=== PATIENT | female | born 1970 | race Caucasian/White ===

== ENCOUNTER 2017-08-25 14:35 | Emergency (ER) | payer OTHER, SELFPAY | END 2017-08-25 16:03 | disposition home or self-care (01) | PROVIDERS: Emergency Provider Nurse Practitioner Family; Visit Provider Nurse Practitioner Family | DX: J10.1 Influenza due to other identified influenza virus with other respiratory manifestations (principal); F17.210 Nicotine dependence, cigarettes, uncomplicated | CPT/HCPCS: 87804; 99201 ==

== ENCOUNTER 2017-10-26 21:09 | Emergency (ER) | payer OTHER, SELFPAY ==
[2017-10-26 21:09] VITALS: BP 156/117; PULSE 105; RESP 18; TEMP 37; O2SAT 97; BMI 33.9
--- NOTE | 2017-10-26 21:23 | XR_ITS ---
XR chest 2V INDICATION: Chest pain PA and lateral chest 12/14/2012 COMPARISON: FINDINGS: The lung ceballos are well expanded and appear clear of infiltrate. The cardiomediastinal silhouette and vascularity are normal. The costophrenic angles are clear. The bony thorax is normal. IMPRESSION: Normal chest.
[2017-10-26 21:40] LABS: Basophils % 0.4 % (0.1-2.0); Eosinophils # 0.4 K/mm3 (0.0-0.4); Eosinophils % 3.8 % (0.1-12.0); Hemoglobin 11.2 g/dL (12.2-16.2); Lymphocytes # 2.7 K/mm3 (0.7-4.5); Lymphocytes % 25.2 K/mm3 (10-50); Mean Corpuscular HGB Conc 31.9 g/dL (31.8-35.4); Mean Corpuscular Hemoglobin 30.7 pg (27.0-31.2); Mean Platelet Volume 7.9 fl (7.4-10.4); Monocytes # 0.4 K/mm3 (0.1-1.0); Monocytes % 3.9 % (1.7-9.3); Neutrophils # 7.1 K/mm3 (1.8-7.8); Neutrophils % 66.8 % (37.0-80.0); Platelet Count 315 K/mm3 (142-424); Red Blood Count 3.65 M/mm3 (4.20-5.40); Red Cell Distribution Width 15.4 % (11.5-17.5); White Blood Count 10.6 K/mm3 (4.8-10.8)
[2017-10-26 22:07] LABS: Alanine Aminotransferase 26 U/L (12-78); Albumin Level 3.2 gm/dL (3.4-5.0); Albumin/Globulin Ratio 0.8 (1.1-1.8); Alkaline Phosphatase 120 U/L (46-116); Anion Gap 9.3 mEq/L (5-15); Aspartate Amino Transferase 16 U/L (15-37); Bilirubin,Total 0.2 mg/dL (0.2-1.0); Blood Urea Nitrogen 18 mg/dL (7-18); Calcium 8.6 mg/dL (8.5-10.1); Carbon Dioxide 28 mmol/L (21.0-32.0); Chloride 107 mmol/L (98-107); Creatine Kinase 35 U/L (26-192); Creatinine Clearance Estimated 153 mL/min (0-300); Creatinine,Serum 0.69 mg/dL (0.55-1.02); Estimated Glomerular Filt Rate 92 ml/min (>60); GFR (African American) 111 ML/MIN (>60); Globulin 3.9 gm/dl (1.3-3.2); Glucose 107 mg/dL (74-106); Potassium 4.3 mmoL/L (3.5-5.1); Sodium 140 mmol/L (136-145); Total Protein,Serum 7.1 gm/dL (6.4-8.2); Troponin I < 0.02 ng/ml (0.00-0.06)
[2017-10-26 22:13] LABS: CKMB Relative Index 1.4 U/L (0-4.0); Creatine Kinase MB < 0.5 mg/ml (0.0-3.6)
--- NOTE | 2017-10-26 22:35 | HMH.EDCP ---
ED Disposition Clinical Impression: Atypical chest pain Disposition: Home, Self-Care Condition on Discharge: Good Instructions: DI for Atypical Chest Pain Additional Instructions: call your pcp for tanesha pineda - Critical Care Critical Care Time: No Attestation: On 10/26/17, the high probability of a clinically significant, sudden or life threatening deterioration of the following system(s) required my full and direct attention, intervention and personal management. The time I documented below is in addition to time spent performing reported procedures but includes the following listed in this critical care notation. Medical Decision Making - Medical Records Medical records reviewed: Yes: I reviewed the patient's medical records. Vital Signs: 10/26/17 21:09 Temperature 98.6 F Temperature Source Oral Pulse Rate [Right Radial] 105 H Respiratory Rate 18 Blood Pressure [Right Arm] 156/117 Blood Pressure Mean [Right Arm] 130 Blood Pressure Source [Right Arm] Automatic Cuff Blood Pressure Position [Right Arm] Sitting 02 Sat by Pulse Oximetry 97 Oxygen Delivery Method Room Air - Lab Data Lab results reviewed: Yes: I reviewed the patient's lab results. Lab Results 10/26/17 21:30: WBC 10.6, RBC 3.65 L, Hgb 11.2 L, Hct 35.0 L, MCV 96.0, MCH 30.7, MCHC 31.9, RDW 15.4, Plt Count 315, MPV 7.9, Neut % (Auto) 66.8, Lymph % (Auto) 25.2, [place] % (Auto) 3.9, Eos % (Auto) 3.8, Baso % (Auto) 0.4, Neut # (Auto) 7.1, Lymph # (Auto) 2.7, [place] # (Auto) 0.4, Eos # (Auto) 0.4, Baso # (Auto) 0.0 10/26/17 21:30: Sodium 140, Potassium 4.3, Chloride 107, Carbon Dioxide 28, Anion Gap 9.3, BUN 18, Creatinine 0.69, Estimated Creat Clear 153, Estimated GFR 92, Est GFR ( Amer) 111, Glucose 107 H, Calcium 8.6, Total Bilirubin 0.2, AST 16, ALT 26, Alkaline Phosphatase 120 H, Total Creatine Kinase 35, CK-MB (CK-2) < 0.5, CK-MB (CK-2) Rel Index 1.4, Troponin I < 0.02, Total Protein 7.1, Albumin 3.2 L, Globulin 3.9 H, Albumin/Globulin Ratio 0.8 L Result diagrams: 10/26/17 21:30 10/26/17 21:30 Orders (Tests/Meds): ED MEDICATIONS Discontinued Medications Generic Name Dose Route Start Last Admin Trade Name Laurel PRN Reason Stop Dose Admin Aspirin 243 mg 10/26/17 21:23 10/26/17 21:28 Aspirin 81mg Chewable Tablet PO 10/26/17 21:24 243 mg ONCE ONE Administration Famotidine 20 mg 10/26/17 22:41 10/26/17 22:50 Pepcid 20mg/2ml Vial IV 10/26/17 22:42 20 mg ONCE ONE Administration Metoclopramide HCl 10 mg 10/26/17 22:40 10/26/17 22:50 Reglan 10mg/2ml Vial IVP 10/26/17 22:41 10 mg ONCE ONE Administration ORDERS Category Date Time Status XR chest 2V Stat Exams 10/26/17 21:23 Taken - Radiology Data #1 Image(s): Chest Image Reviewed: Yes I reviewed the patient's radiology image Preliminary Findings: Normal/NAD - ECG Data Tracing #1 I reviewed this ECG and interpreted as documented below: Normal Sinus Rhythm: Yes Ischemic changes: non-specific ST-T wave changes - Otto Inquiry Pt receiving controlled substance: No Chest Pain HPI - General Chief Complaint: Chest Pain Stated Complaint: chest pain Time Seen by Provider: 10/26/17 22:35 Mode of Arrival: Ambulatory Source of Information: Patient, Spouse, Medical Record Limitations: No Limitations Description of Symptoms (Recalled from ER Triage Doc. by RN): Chest pain that woke pt up at 11 am, and has continued throughout the night, with nausea. - History of Present Illness HPI narrative: midsternal chest pain with rad toward back over the last 12 hrs - she has hx of cad with stent 2014 and last saw card last month- has had several episodes of similiar pain - MD complaint: chest pain indicative of cardiac Onset (ago): hour(s) Duration: constant Activity at onset: during rest Pain location: substernal Severity: similar to previous episodes Quality: tightness Pain radiation: back Treatments prior to or on arrival f
[2017-10-26 23:52] VITALS: BP 139/89; PULSE 95; RESP 18; TEMP 37.2; O2SAT 95
== END 2017-10-26 23:52 | disposition home or self-care (01) ==
PROVIDERS: Emergency Provider Emergency Medicine
DX: R07.89 Other chest pain (principal); I25.10 Atherosclerotic heart disease of native coronary artery without angina pectoris; I10 Essential (primary) hypertension; Z79.82 Long term (current) use of aspirin; Z88.6 Allergy status to analgesic agent; F17.210 Nicotine dependence, cigarettes, uncomplicated
CPT/HCPCS: 71046; 80053; 82550; 82553; 84484; 85025; 93005; 93041; 96365; 96374; 96375; 99283; J2405

== ENCOUNTER → 2018-11-14 15:53 | Outpatient (CLI) | payer OTHER, SELFPAY ==
--- NOTE | 2018-11-14 15:59 | XR_ITS ---
XR shoulder RT min 2V HISTORY: ITS.REASON: RT SHOULDER PAIN ORDERING PHYSICIAN: Samir Loaiza MD PATIENT AGE: 48 years Comparison: None FINDINGS: No fracture or dislocation. No lytic or blastic change. There is normal mineralization. The joint spaces are well-preserved. No significant degenerative/arthritic changes. No erosive changes evident. No subacromial stenosis. IMPRESSION: Negative right shoulder
== END ==
PROVIDERS: PCP Anesthesiology; Visit Provider Anesthesiology
DX: M25.511 Pain in right shoulder (principal)
CPT/HCPCS: 73030

== ENCOUNTER → 2019-03-11 12:49 | Outpatient (CLI) | payer OTHER, SELFPAY ==
--- NOTE | 2019-03-11 12:54 | MR_ITS ---
MR shoulder RT w con, IR arthrogram shoulder RT HISTORY:Right shoulder pain with limited range of motion and weakness in right arm ITS.REASON: ROTATOR CUFF TENDONITIS ORDERING PHYSICIAN: Myriam Forrester PATIENT AGE: 48 years Comparison: 11/14/2018 TECHNIQUE: Following obtaining informed consent and timeout procedure, the patient was placed on the fluoroscopy table and the right shoulder was prepped in the usual aseptic technique. Using fluoroscopic guidance with local anesthesia with 1% buffered lidocaine, a 22-gauge needle was inserted into the right shoulder joint by the anterior approach. Approximately 12 mL's of a mixture of gadolinium, Optiray 320, and 1% lidocaine was injected. The patient tolerated the procedure well without evidence of immediate complication. Images were then obtained. The patient was then taken to the MRI suite an post arthrogram images were of retained. Arthrogram findings: There is good flow contrast into the shoulder joint without evidence of resistance. There is no evidence of flow contrast into the subacromial region. No evidence of rotator cuff tear. Contrast flowed freely into the subcoracoid recess. There was contrast extending into the bicipital tendon sheath and subcoracoid area. Some contrast also leaks into the soft tissues medial to the bicipital tendon in the arm area. MRI arthrogram: No evidence of rotator cuff tear. The supraspinatus, infraspinatus, subscapularis, and teres minor tendons appear intact. No obvious labral tear. The bicipital tendon is in place. There was a mild degree of motion artifact on the exam making evaluation of the glenohumeral ligaments somewhat difficult. There is however some extravasation of contrast inferior to the expected location of the inferior glenohumeral ligament at the attachment on the humerus consistent with humeral avulsion of the inferior glenohumeral ligament IMPRESSION: 1. No evidence of rotator cuff or labral tear. 2. Findings consistent with humeral avulsion of the inferior glenohumeral ligament/HAGL .
== END ==
PROVIDERS: PCP Nurse Practitioner Family; Visit Provider Physician Assistant
DX: M75.51 Bursitis of right shoulder (principal)
CPT/HCPCS: 73040; 73222

== ENCOUNTER 2019-08-06 14:30 | Outpatient (RCR) | payer OTHER, SELFPAY | END 2019-08-06 14:35 | disposition home or self-care (01) | LOC: OT 14:30 | PROVIDERS: Visit Provider Orthopaedic Surgery | DX: M25.511 Pain in right shoulder (principal) | CPT/HCPCS: 97014; 97110; 97140; 97164; 97166; G0283 ==

== ENCOUNTER → 2019-10-07 15:18 | Outpatient (CLI) | payer MEDICAID, SELFPAY ==
--- NOTE | 2019-10-07 15:25 | XR_ITS ---
PROCEDURE: XR FOOT LT MIN 3V CLINICAL INDICATION: LT ANKLE/FOOT PAIN COMPARISON: XR ANKLE LT MIN 3V from 10/07/2019 FINDINGS: No fracture or dislocation. No lytic or blastic change. There is normal mineralization. The joint spaces are well-preserved. No significant degenerative/arthritic changes. No erosive changes evident. Other findings:None. IMPRESSION: No acute findings. Dictated by: Evan Malone MD 10/07/2019 15:53 Electronically signed by Evan Malone MD in [place] 10/07/2019 15:53
== END ==
PROVIDERS: PCP Nurse Practitioner Family; Visit Provider Anesthesiology
DX: M25.572 Pain in left ankle and joints of left foot (principal); M79.672 Pain in left foot
CPT/HCPCS: 73610; 73630

== ENCOUNTER 2019-10-27 14:30 | Outpatient (RCR) | payer MEDICAID, SELFPAY | END 2019-10-27 14:35 | disposition home or self-care (01) | LOC: OT 14:30 | PROVIDERS: Visit Provider Orthopaedic Surgery | DX: M25.511 Pain in right shoulder (principal) | CPT/HCPCS: 97014; 97110; 97140; 97164; 97166; G0283 ==

== ENCOUNTER → 2019-11-04 13:04 | Outpatient (CLI) | payer MEDICAID, SELFPAY ==
--- NOTE | 2019-11-04 13:06 | MR_ITS ---
PROCEDURE: MR SHOULDER RT W CON CLINICAL INDICATION: RT SHOULDER ARTHRALGIA, EVALUATE FOR RE-INJURY Right shoulder pain with limited range of motion. History of shoulder surgery Arthro from 03/11/2019 TECHNIQUE: Multiplanar multi echo sequences are performed following the intra-articular injection of contrast. Patient was also brought back for additional coronal PD and STIR images which were not obtained in the initial setting. FINDINGS: No evidence of rotator cuff tear. There is subacromial stenosis with downsloping acromion with increased T2 signal within the supraspinatus tendon consistent with tendinopathy/tendinosis. No abnormal localization of contrast within the subacromial region that would indicate a rotator cuff tear. Previously there was a avulsion of the glenohumeral ligament. That is no longer apparent as there has been interval surgery. There are some mild osteoarthritic changes of the shoulder joint the with slightly high-riding humeral head. There is some artifact within the joint is well from the previous surgery. The patient was not able to perform and ABER sequence. The bicipital tendon is in place. There is some distortion of the anterior glenoid labrum as well as the middle glenohumeral ligament which may be due to postsurgical changes. The bicipital tendon is in place. No obvious labral tear. IMPRESSION: 1. No evidence of rotator cuff tear. 2. Tendinopathy/tendinosis of the supraspinatus tendon with subacromial stenosis. 3. Interval repair of the inferior glenohumeral ligament 4. There is some distortion of the anterior glenoid labrum and middle glenohumeral ligament which may be postsurgical. Please correlate with surgical procedure. Dictated by: Evan Malone MD 11/08/2019 06:23 Electronically signed by Evan Malone MD in [place] 11/08/2019 06:23
--- NOTE | 2019-11-04 13:09 | IR_ITS ---
PROCEDURE: IR ARTHROGRAM SHOULDER RT CLINICAL INDICATION: RT SHOULDER PAIN Right shoulder pain with limited range of motion. Previous shoulder surgery COMPARISON: MR SHOULDER RT W CON from 11/04/2019 FINDINGS: Technique: Following obtaining informed consent and time-out procedure under aseptic conditions and local anesthesia with 1 percent buffered lidocaine, a 22 gauge needle was inserted into the shoulder joint capsule via the anterior subcoracoid approach. Approximately 12 cc of a mixture of gadolinium, Optiray 320, and lidocaine was injected and noted to fill the shoulder joint as expected. The patient tolerated the procedure well without evidence of immediate complication. Internal and external rotation views following exercise of the shoulder shows normal localization of contrast. No evidence of rotator cuff tear. No evidence of a humeral avulsion of the glenohumeral ligament IMPRESSION: Unremarkable right shoulder arthrogram. Please see MR report for further detail Dictated by: Evan Malone MD 11/08/2019 06:09 Electronically signed by Evan Malone MD in [place] 11/08/2019 06:09
== END ==
PROVIDERS: PCP Nurse Practitioner Family; Visit Provider Orthopaedic Surgery
DX: M25.511 Pain in right shoulder (principal)
CPT/HCPCS: 73040; 73222; Q9967

== ENCOUNTER → 2019-11-07 11:59 | Outpatient (CLI) | payer MEDICAID, SELFPAY | PROVIDERS: PCP Nurse Practitioner Family; Visit Provider Nurse Practitioner Family | DX: M25.511 Pain in right shoulder (principal) ==

== ENCOUNTER → 2020-01-15 11:12 | Outpatient (CLI) | payer MEDICAID, SELFPAY ==
--- NOTE | 2020-01-15 11:17 | XR_ITS ---
PROCEDURE: XR CHEST 2V CLINICAL HISTORY: CORONARY ARTERY DISEASE,SMOKER Smoker COMPARISON: CXR CHEST(2 VIEWS-NOT PORTABLE) from 12/14/2012 CXR2V XR chest 2V from 10/26/2017 XR CHEST 2V from 08/30/2019 FINDINGS: The cardiomediastinal silhouette and pulmonary vascularity are within normal limits. The lungs are clear without infiltrates, suspicious nodules, or pleural effusions. Small metallic density overlies the lower chest medially etiology indeterminate but not significantly changed. No acute bony findings. IMPRESSION: No acute findings. Dictated by: Evan Malone MD 01/15/2020 11:27 Electronically signed by Evan Malone MD in [place] 01/15/2020 11:27
== END ==
PROVIDERS: PCP Nurse Practitioner Family; Visit Provider Nurse Practitioner Family
DX: Z01.818 Encounter for other preprocedural examination (principal); I25.10 Atherosclerotic heart disease of native coronary artery without angina pectoris; F17.210 Nicotine dependence, cigarettes, uncomplicated
CPT/HCPCS: 71046

== ENCOUNTER 2020-04-16 13:00 | Outpatient (RCR) | payer MEDICAID, SELFPAY | END 2020-04-16 13:47 | disposition home or self-care (01) | LOC: PT 13:00 | PROVIDERS: PCP Nurse Practitioner Family; Visit Provider Orthopaedic Surgery | DX: M25.511 Pain in right shoulder; Z98.890 Other specified postprocedural states | CPT/HCPCS: 97010; 97014; 97016; 97110; 97140; 97163; 97164; G0283 ==

== ENCOUNTER 2020-05-16 15:48 | Emergency (ER) | payer MEDICAID, SELFPAY ==
[2020-05-16 15:49] VITALS: BP 175/112; PULSE 94; RESP 16; TEMP 36.6; O2SAT 98; BMI 35.5
--- NOTE | 2020-05-16 16:01 | HMH.EDHA ---
ED Disposition Clinical Impression: Migraine Qualifiers: Migraine type: without aura Status migrainosus presence: without status migrainosus Intractability: not intractable Qualified Code(s): G43.009 - Migraine without aura, not intractable, without status migrainosus Disposition: Home, Self-Care Condition on Discharge: Good Instructions: Migraine -- Adult Referrals: Provider,Referral, [Referring] - - Critical Care Critical Care Time: No Attestation: On , the high probability of a clinically significant, sudden or life threatening deterioration of the following system(s) required my full and direct attention, intervention and personal management. The time I documented below is in addition to time spent performing reported procedures but includes the following listed in this critical care notation. Medical Decision Making - Medical Records Medical records reviewed: Yes: I reviewed the patient's medical records. - Otto Inquiry Pt receiving controlled substance: No Vital Signs: 05/16/20 15:49 05/16/20 16:27 05/16/20 17:43 Temperature 98 F Temperature Source Oral Pulse Rate [Left Radial] 94 H 98 H 102 H Respiratory Rate 16 18 20 Blood Pressure [Right Arm] 175/112 H 161/101 H 154/102 H Blood Pressure Mean [Right Arm] 133 121 119 Blood Pressure Source [Right Arm] Automatic Cuff Blood Pressure Position [Right Arm] Sitting Sitting 02 Sat by Pulse Oximetry 98 98 97 Oxygen Delivery Method Room Air Orders (Tests/Meds): ED MEDICATIONS Discontinued Medications Generic Name Dose Route Start Last Admin Trade Name Freq PRN Reason Stop Dose Admin Dihydroergotamine Mesylate 1 mg 05/16/20 16:51 05/16/20 17:04 D.H.E. 45 1mg/Ml Amp IM 05/16/20 16:52 1 mg ONCE ONE Administration Morphine Sulfate 2 mg 05/16/20 18:04 05/16/20 18:10 Morphine 2mg/Ml Syringe IM 05/16/20 18:05 2 mg ONCE ONE Administration Ondansetron HCl 4 mg 05/16/20 18:05 05/16/20 18:10 Zofran 4mg Odt SL 05/16/20 18:06 Not Given ONCE ONE Ondansetron HCl 4 mg 05/16/20 18:09 05/16/20 18:10 Zofran 4mg/2ml Vial IM 05/16/20 18:10 4 mg ONCE ONE Administration Orphenadrine Citrate 60 mg 05/16/20 16:00 05/16/20 16:05 Norflex 60mg/2ml Vial IM 05/16/20 16:01 60 mg ONCE ONE Administration Promethazine HCl 25 mg 05/16/20 16:00 05/16/20 16:05 Phenergan 25mg/Ml 1ml Vial IM 05/16/20 16:01 25 mg ONCE ONE Administration Sumatriptan Succinate 6 mg 05/16/20 16:00 05/16/20 16:05 Imitrex 6mg/0.5ml Vial SQ 05/16/20 16:01 6 mg ONCE ONE Administration - CT Data CT Scan: Head Time Received: 18:[address] Reviewed: Yes: I have reviewed the patient's CT results Preliminary Findings: Normal/NAD Headache HPI - General Chief Complaint: Headache Stated Complaint: Migraine Time Seen by Provider: 05/16/20 15:55 Mode of Arrival: Ambulatory Source of Information: Patient Limitations: No Limitations Description of Symptoms (Recalled from ER Triage Doc. by RN): TO ED PER [facility] CAR WITH C/O MIGRAINE H/A STARTING SUNDAY. PT C/O PHOTOPHOBIA, DENIES NAUSEA, VOMITING. STATES NOTHING IS HELPING. PT WITH HX OF MIGRAINES - History of Present Illness HPI Narrative: This is a 50-year-old female that presents with 6-day history of ongoing migrainous headache. Headache is global with photophobia. No aura. No focal neurologic deficit or nuchal rigidity. No fever no chills. Patient does endorse nausea without vomiting no diarrhea no abdominal pain. Patient does have ongoing history of migraine headaches which this is similar in presentation to with her previous migraines. - Related Data Home Medications Medication Instructions Recorded Confirmed aspirin 81 mg tablet,delayed 81 mg PO ONCE tab 10/17/17 11/01/19 release atorvastatin 40 mg tablet 40 mg PO ONCE 10/17/17 11/01/19 lisinopril 5 mg tablet 5 mg PO ONCE 10/17/17 11/01/19 oxycodone-acetaminophen 5 mg-325 7.5 tab
[2020-05-16 16:27] VITALS: BP 161/101; PULSE 98; RESP 18; O2SAT 98
--- NOTE | 2020-05-16 17:34 | CT_ITS ---
PROCEDURE: CT HEAD/BRAIN WO CON CLINICAL INDICATION: severe intractable PABLO COMPARISON: No exams were available for comparison TECHNIQUE: Axial images obtained. All CT scans at the facility use one or more dose reduction, viz: automated exposure control, ma/kV adjustment per patient size (including targeted exams where dose is matched to indication, i.e. head), or iterative reconstruction technique. FINDINGS: No midline shift, mass effect, intracranial hemorrhage, hydrocephalus, or extra-axial fluid collection is evident. There is a well-defined focal hypodense lesion right external capsule likely a prominent perivascular space. Another possibility is an old ischemic infarct. The calvarium has an unremarkable appearance. No mastoid effusion. There are inflammatory changes of the ethmoid sinuses and right frontal sinus likely acute and chronic. IMPRESSION: No acute intracranial finding, ethmoid and right frontal sinusitis as noted Dictated by: Dr. Benito Rodriguez MD 05/16/2020 18:07 Dr. Benito Rodriguez MD in [place] 05/16/2020 18:07
[2020-05-16 17:43] VITALS: BP 154/102; PULSE 102; RESP 20; O2SAT 97
--- NOTE | 2020-05-16 17:46 | PC.NURSE ---
PT CONTINUES TO C/O H/A STATES NO RELIEF WITH MEDS GIVEN
[2020-05-16 18:48] VITALS: BP 154/74; PULSE 88; RESP 16; TEMP 36.6; O2SAT 98
== END 2020-05-16 18:50 | disposition home or self-care (01) ==
PROVIDERS: Emergency Provider Emergency Medicine
DX: G43.009 Migraine without aura, not intractable, without status migrainosus (principal); I10 Essential (primary) hypertension; E78.5 Hyperlipidemia, unspecified; I25.10 Atherosclerotic heart disease of native coronary artery without angina pectoris; I25.2 Old myocardial infarction; F17.210 Nicotine dependence, cigarettes, uncomplicated; Z88.5 Allergy status to narcotic agent; Z79.899 Other long term (current) drug therapy
CPT/HCPCS: 70450; 96372; 96376; 99283; J1110; J2405

== ENCOUNTER → 2020-07-20 15:36 | Outpatient (CLI) | payer MEDICAID, SELFPAY ==
[2020-07-20 16:05] LABS: Basophils % 0.4 % (0.1-2.0); Eosinophils # 0.2 K/mm3 (0.0-0.4); Eosinophils % 2.4 % (0.1-12.0); Hematocrit 41.7 % (37.0-47.0); Hemoglobin 12.9 g/dL (12.2-16.2); Lymphocytes # 2.6 K/mm3 (0.7-4.5); Lymphocytes % 26.4 % (10-50); Mean Corpuscular Hemoglobin 30.8 pg (27.0-31.2); Mean Corpuscular Volume 99.3 fl (81-99); Mean Platelet Volume 7.5 fl (7.4-10.4); Monocytes # 0.4 K/mm3 (0.1-1.0); Monocytes % 4.2 % (1.7-9.3); Neutrophils # 6.6 K/mm3 (1.8-7.8); Neutrophils % 66.5 % (37.0-80.0); Platelet Count 396 K/mm3 (142-424); Red Cell Distribution Width 14.3 % (11.5-17.5)
[2020-07-20 17:06] LABS: Chloride 104 mmol/L (98-107)
[2020-07-20 17:07] LABS: Sodium 139 mmol/L (136-145)
[2020-07-20 17:09] LABS: Alanine Aminotransferase 17 U/L (12-78); Albumin Level 4.2 g/dl (3.5-5.0); Albumin/Globulin Ratio 1.4 (1.1-1.8); Alkaline Phosphatase 116 U/L (38-126); Aspartate Amino Transferase 33 U/L (14-36); Bilirubin,Total 0.6 mg/dl (0.2-1.3); Blood Urea Nitrogen 14 mg/dl (7-17); Calcium 10.2 mg/dl (8.4-10.2); Carbon Dioxide 30 mmol/L (22.0-30.0); Cholesterol 220 mg/dl (140-200); Estimated Glomerular Filt Rate 89 ml/min (>60); GFR (African American) 108 ML/MIN (>60); Glucose 96 mg/dl (74-100); Total Protein,Serum 7.2 g/dl (6.3-8.2); Triglycerides 129 mg/dl (30-150); VLDL Cholesterol 26 mg/dL (0-40)
[2020-07-20 17:10] LABS: Chol/HDL Ratio 4.2 (1-3.5); HDL Cholesterol 53 mg/dl (40-60)
[2020-07-20 17:21] LABS: Direct LDL Cholesterol 146.93 mg/dL (100-129)
== END ==
PROVIDERS: Visit Provider Nurse Practitioner Family
DX: Z00.00 Encounter for general adult medical examination without abnormal findings (principal)
CPT/HCPCS: 36415; 80053; 80061; 83036; 84443; 85025

== ENCOUNTER → 2020-07-30 10:18 | Outpatient (CLI) | payer MEDICAID, SELFPAY | PROVIDERS: Visit Provider Orthopaedic Surgery | DX: Z01.818 Encounter for other preprocedural examination (principal) | CPT/HCPCS: U0003 ==

== ENCOUNTER 2020-08-31 14:00 | Outpatient (RCR) | payer MEDICAID, SELFPAY | END 2020-08-31 14:05 | disposition home or self-care (01) | LOC: PT 14:00 | PROVIDERS: Visit Provider Orthopaedic Surgery | DX: M25.511 Pain in right shoulder (principal); Z96.611 Presence of right artificial shoulder joint | CPT/HCPCS: 97014; 97016; 97110; 97140; 97163; G0283 ==

== ENCOUNTER 2021-03-14 20:23 | Emergency (ER) | payer MEDICAID, SELFPAY ==
[2021-03-14 20:50] VITALS: BP 172/117; PULSE 87; RESP 21; TEMP 36.9; O2SAT 97; BMI 34.7
--- NOTE | 2021-03-14 21:00 | PC.NURSE ---
PATIENT SENT TO ER PER Orly ZURITA APRN FOR FURTHER EVALUATION. REPORT GIVEN TO Orly PRADO RN
--- NOTE | 2021-03-14 21:04 | HMH.EDUTC ---
[facility] [place] Condition on Discharge: Good <Catrachito Hunt - Last Filed: 03/15/21 22:17> Condition on Discharge: Good <Jayy Chen - Last Filed: 03/16/21 00:24> Clinical Impression: Headache Qualifiers: Headache type: unspecified Headache chronicity pattern: acute headache Intractability: not intractable Qualified Code(s): R51.9 - Headache, unspecified Disposition: Home, Self-Care Instructions: DI for Headache Additional Instructions: see pcp for follow up Prescriptions: cephALEXin [cephALEXin 500mg capsule*] 500 mg PO TID #30 cap Transmission Status: Received by [id number] predniSONE [Prednisone 20mg Tab] 20 mg PO BID #10 tab Transmission Status: Received by [id number] Referrals: Sierra [place] MD [Primary Care Provider] - Medical Decision Making - Medical Records Medical records reviewed: Yes: I reviewed the patient's medical records. - Otto Inquiry Pt receiving controlled substance: No - Lab Data Lab results reviewed: Yes: I reviewed the patient's lab results. Result diagrams: 03/14/21 22:35 03/14/21 22:35 <Catrachito Hunt - Last Filed: 03/15/21 22:17> - Medical Records Medical records reviewed: No: I reviewed the patient's medical records. - Otto Griffiths Pt receiving controlled substance: No - Lab Data Lab results reviewed: Yes: I reviewed the patient's lab results. Result diagrams: 03/14/21 22:35 03/14/21 22:35 <Jayy Chen - Last Filed: 03/16/21 00:24> Vital Signs: 03/14/21 20:50 03/14/21 21:16 03/14/21 21:31 Temperature 98.5 F 98.2 F Temperature Source Oral Oral Pulse Rate 86 Pulse Rate [Right Brachial] 87 94 H Respiratory Rate 21 17 Blood Pressure 147/103 H Blood Pressure [Left Arm] 154/98 H Blood Pressure [Right Arm] 172/117 H 168/114 H Blood Pressure Mean 118 Blood Pressure Mean [Left Arm] 116 Blood Pressure Mean [Right Arm] 135 132 Blood Pressure Source Blood Pressure Source [Left Arm] Manual Cuff/ Palpation Blood Pressure Source [Right Arm] Automatic Cuff Manual Cuff/ Palpation Blood Pressure Position [Right Arm] Sitting 02 Sat by Pulse Oximetry 97 98 98 Oxygen Delivery Method Room Air Room Air Room Air 03/15/21 00:12 03/15/21 00:37 03/15/21 01:01 Temperature Temperature Source Pulse Rate 80 74 77 Pulse Rate [Right Brachial] Respiratory Rate Blood Pressure 142/101 H 141/100 H 165/101 H Blood Pressure [Left Arm] Blood Pressure [Right Arm] Blood Pressure Mean Blood Pressure Mean [Left Arm] Blood Pressure Mean [Right Arm] Blood Pressure Source Blood Pressure Source [Left Arm] Blood Pressure Source [Right Arm] Blood Pressure Position [Right Arm] 02 Sat by Pulse Oximetry 99 99 99 Oxygen Delivery Method 03/15/21 01:21 Temperature 98.4 F Temperature Source Oral Pulse Rate 82 Pulse Rate [Right Brachial] Respiratory Rate 17 Blood Pressure 149/98 H Blood Pressure [Left Arm] Blood Pressure [Right Arm] Blood Pressure Mean Blood Pressure Mean [Left Arm] Blood Pressure Mean [Right Arm] Blood Pressure Source Manual Cuff/ Auscultation Blood Pressure Source [Left Arm] Blood Pressure Source [Right Arm] Blood Pressure Position [Right Arm] 02 Sat by Pulse Oximetry Oxygen Delivery Method Room Air - Lab Data Lab Results 03/14/21 22:35: WBC 8.7, RBC 4.33, Hgb 13.3, Hct 40.6, MCV 93.7, MCH 30.7, MCHC 32.8, RDW 15.5, Plt Count 351, MPV 9.1, Neut % (Auto) 59.4, Lymph % (Auto) 31.1, [place] % (Auto) 4.1, Eos % (Auto) 4.6, Baso % (Auto) 0.8, Neut # (Auto) 5.2, Lymph # (Auto) 2.7, [place] # (Auto) 0.4, Eos # (Auto) 0.4, Baso # (Auto) 0.1, ESR Cancelled 03/14/21 22:35: Sodium 140, Potassium 4.4, Chloride 108 H, Carbon Dioxide 25, Anion Gap 11.4, BUN 14, Creatinine 0.60, Estimated Creat Clear 175, Estimated GFR 106, Est GFR ( Amer) 129, Glucose 96, Calcium 9.4, Total Bilirubin 0.5, AST 26, ALT 11 L, Alkaline Phosphatase 123, C-Reactive Protein 4.7 H, Total
[2021-03-14 21:16] VITALS: BP 154/98; BP 168/114; PULSE 94; RESP 17; TEMP 36.8; O2SAT 98; BMI 34.7
[2021-03-14 21:31] VITALS: BP 147/103; PULSE 86; O2SAT 98
[2021-03-14 21:36] VITALS: BMI 34.7
--- NOTE | 2021-03-14 22:05 | CT_ITS ---
PROCEDURE INFORMATION: Exam: CT Head Without Contrast Exam date and time: 03/14/2021 10:05 PM Age: 50 years old Clinical indication: Pain; Headache not specified; Patient HX: Headache with RT eye squinted closed; Additional info: Headache with occular tightness ans spasms HTN TECHNIQUE: Imaging protocol: Computed tomography of the head without contrast. Radiation optimization: All CT scans at this facility use at least one of these dose optimization techniques: automated exposure control; mA and/or kV adjustment per patient size (includes targeted exams where dose is matched to clinical indication); or iterative reconstruction. COMPARISON: CT HEAD/BRAIN WO CON 05/16/2020 5:48 PM FINDINGS: Brain: Normal. No hemorrhage. Unremarkable white matter. No mass effect. Cerebral ventricles: No ventriculomegaly. Paranasal sinuses: Mucosal thickening is improved versus comparison. No air-fluid levels to suggest acute sinusitis. Mastoid air cells: Visualized mastoid air cells are well aerated. Bones/joints: Unremarkable. No acute fracture. Soft tissues: Unremarkable. Other findings: No reconstructions provided. IMPRESSION: 1. No acute intracranial pathology 2. Improved, but moderate chronic pansinus disease.
--- NOTE | 2021-03-14 22:25 | PC.NURSE ---
Notified lab need for blood draw
[2021-03-14 22:48] LABS: Basophils # 0.1 K/mm3 (0-0.2); Basophils % 0.8 % (0.1-2.0); Eosinophils # 0.4 K/mm3 (0.0-0.4); Eosinophils % 4.6 % (0.1-12.0); Hematocrit 40.6 % (37.0-47.0); Hemoglobin 13.3 g/dL (12.2-16.2); Lymphocytes # 2.7 K/mm3 (0.7-4.5); Lymphocytes % 31.1 % (10-50); Mean Corpuscular HGB Conc 32.8 g/dL (31.8-35.4); Mean Corpuscular Hemoglobin 30.7 pg (27.0-31.2); Mean Corpuscular Volume 93.7 fl (81-99); Mean Platelet Volume 9.1 fl (7.4-10.4); Monocytes # 0.4 K/mm3 (0.1-1.0); Monocytes % 4.1 % (1.7-9.3); Neutrophils # 5.2 K/mm3 (1.8-7.8); Neutrophils % 59.4 % (37.0-80.0); Platelet Count 351 K/mm3 (142-424); Red Blood Count 4.33 M/mm3 (4.20-5.40); Red Cell Distribution Width 15.5 % (11.5-17.5); White Blood Count 8.7 K/mm3 (4.8-10.8)
[2021-03-14 23:06] LABS: Alanine Aminotransferase 11 U/L (12-78); Albumin/Globulin Ratio 1.3 (1.1-1.8); Alkaline Phosphatase 123 U/L (38-126); Anion Gap 11.4 mEq/L (5-15); Aspartate Amino Transferase 26 U/L (14-36); Bilirubin,Total 0.5 mg/dl (0.2-1.3); Blood Urea Nitrogen 14 mg/dl (7-17); Calcium 9.4 mg/dl (8.4-10.2); Carbon Dioxide 25 mmol/L (22.0-30.0); Chloride 108 mmol/L (98-107); Creatinine Clearance Estimated 175 mL/min (50-200); Estimated Glomerular Filt Rate 106 ml/min (>60); GFR (African American) 129 ML/MIN (>60); Globulin 3.2 g/dL (1.3-3.2); Glucose 96 mg/dl (74-100); Potassium 4.4 mmoL/L (3.5-5.1); Sodium 140 mmol/L (136-145); Total Protein,Serum 7.2 g/dl (6.3-8.2)
[2021-03-14 23:11] LABS: C-Reactive Protein 4.7 mg/L (0-4)
--- NOTE | 2021-03-14 23:13 | PC.NURSE ---
Lexie from rad came down to get patient and notified us IV had infiltrated. IV removed at this time, arm bandaged at this time. Pt refuses for IV to restarted. Notified MD and pt to radiology for scan.
[2021-03-14 23:38] LABS: Procalcitonin < 0.030 ng/mL (0.0-2.0)
--- NOTE | 2021-03-15 | PC.NURSE ---
Called radiology to check status on Head CT
[2021-03-15 00:12] VITALS: BP 142/101; PULSE 80; O2SAT 99
[2021-03-15 00:37] VITALS: BP 141/100; PULSE 74; O2SAT 99
[2021-03-15 01:01] VITALS: BP 165/101; PULSE 77; O2SAT 99
--- NOTE | 2021-03-15 01:04 | HMH.EDHA ---
ED Disposition Clinical Impression: Headache Qualifiers: Headache type: unspecified Headache chronicity pattern: acute headache Intractability: not intractable Qualified Code(s): R51.9 - Headache, unspecified Disposition: Home, Self-Care Condition on Discharge: Good Instructions: DI for Headache Additional Instructions: see pcp for follow up Prescriptions: cephALEXin [cephALEXin 500mg capsule*] 500 mg PO TID #30 cap Transmission Status: Pending to [facility] predniSONE [Prednisone 20mg Tab] 20 mg PO BID #10 tab [facility]: [facility] Referrals: Sierra Colorado MD [Primary Care Provider] - - Critical Care Critical Care Time: No Attestation: On 03/14/21, the high probability of a clinically significant, sudden or life threatening deterioration of the following system(s) required my full and direct attention, intervention and personal management. The time I documented below is in addition to time spent performing reported procedures but includes the following listed in this critical care notation. Medical Decision Making - Medical Records Medical records reviewed: Yes: I reviewed the patient's medical records. - Otto Inquiry Pt receiving controlled substance: No Vital Signs: 03/14/21 20:50 03/14/21 21:16 03/14/21 21:31 Temperature 98.5 F 98.2 F Temperature Source Oral Oral Pulse Rate 86 Pulse Rate [Right Brachial] 87 94 H Respiratory Rate 21 17 Blood Pressure 147/103 H Blood Pressure [Left Arm] 154/98 H Blood Pressure [Right Arm] 172/117 H 168/114 H Blood Pressure Mean 118 Blood Pressure Mean [Left Arm] 116 Blood Pressure Mean [Right Arm] 135 132 Blood Pressure Source [Left Arm] Manual Cuff/ Palpation Blood Pressure Source [Right Arm] Automatic Cuff Manual Cuff/ Palpation Blood Pressure Position [Right Arm] Sitting 02 Sat by Pulse Oximetry 97 98 98 Oxygen Delivery Method Room Air Room Air Room Air - Lab Data Lab results reviewed: Yes: I reviewed the patient's lab results. Lab Results 03/14/21 22:35: WBC 8.7, RBC 4.33, Hgb 13.3, Hct 40.6, MCV 93.7, MCH 30.7, MCHC 32.8, RDW 15.5, Plt Count 351, MPV 9.1, Neut % (Auto) 59.4, Lymph % (Auto) 31.1, [place] % (Auto) 4.1, Eos % (Auto) 4.6, Baso % (Auto) 0.8, Neut # (Auto) 5.2, Lymph # (Auto) 2.7, [place] # (Auto) 0.4, Eos # (Auto) 0.4, Baso # (Auto) 0.1, ESR Cancelled 03/14/21 22:35: Sodium 140, Potassium 4.4, Chloride 108 H, Carbon Dioxide 25, Anion Gap 11.4, BUN 14, Creatinine 0.60, Estimated Creat Clear 175, Estimated GFR 106, Est GFR ( Amer) 129, Glucose 96, Calcium 9.4, Total Bilirubin 0.5, AST 26, ALT 11 L, Alkaline Phosphatase 123, C-Reactive Protein 4.7 H, Total Protein 7.2, Albumin 4.0, Globulin 3.2, Albumin/Globulin Ratio 1.3, Procalcitonin < 0.030 Result diagrams: 03/14/21 22:35 03/14/21 22:35 Orders (Tests/Meds): ED MEDICATIONS Generic Name Dose Route Start Last Admin Trade Name Freq PRN Reason Stop Dose Admin Sodium Chloride 1,000 mls @ 999 mls/hr 03/14/21 22:15 03/14/21 23:05 Sod Chlor 0.9% 1000ml Bag IV 03/14/21 23:15 999 mls/hr .Q1H1M JACK Administration Discontinued Medications Generic Name Dose Route Start Last Admin Trade Name Freq PRN Reason Stop Dose Admin Diphenhydramine HCl 50 mg 03/14/21 22:29 03/14/21 23:05 Diphenhydramine 50mg/Ml Vial IV 03/14/21 22:30 Not Given ONCE ONE Methylprednisolone Sodium Succinate 125 mg 03/14/21 22:06 03/14/21 23:04 Methylprednisolone Sod Succ 125mg Vial IV 03/14/21 22:07 Not Given ONCE ONE Metoclopramide HCl 10 mg 03/14/21 22:06 03/14/21 22:29 Metoclopramide Hcl 10mg/2ml Vial IVP 03/14/21 22:07 Not Given ONCE ONE Promethazine HCl 25 mg 03/14/21 22:06 03/14/21 23:05 Promethazine Hcl 25mg/Ml 1ml Vial IV 03/14/21 22:07 Not Given ONCE ONE Sodium Chloride 25 ml 03/14/21 22:06 03/14/21 23:05 Sodium Chloride 0.9% 25ml Bag IV 03/14/21 22:07 Not Given
[2021-03-15 01:21] VITALS: BP 149/98; PULSE 82; RESP 17; TEMP 36.9; O2SAT 97
== END 2021-03-15 01:34 | disposition home or self-care (01) ==
LOC: UTC 20:30 → ER 21:14
PROVIDERS: Emergency Provider Emergency Medicine; PCP Internal Medicine
DX: G43.909 Migraine, unspecified, not intractable, without status migrainosus (principal); I10 Essential (primary) hypertension; I25.10 Atherosclerotic heart disease of native coronary artery without angina pectoris; E78.5 Hyperlipidemia, unspecified; I25.2 Old myocardial infarction; F17.210 Nicotine dependence, cigarettes, uncomplicated; Z88.5 Allergy status to narcotic agent; Z79.899 Other long term (current) drug therapy
CPT/HCPCS: 36415; 70450; 80053; 84145; 85025; 86140; 96365; 96372; 99282; 99283; J0595

== ENCOUNTER 2021-04-26 16:27 | Emergency (ER) | payer MEDICAID, SELFPAY ==
[2021-04-26 17:20] VITALS: BP 129/84; PULSE 87; RESP 18; TEMP 36.9; O2SAT 98; BMI 34.7
--- NOTE | 2021-04-26 18:00 | HMH.EDGENADL ---
ED Disposition Clinical Impression: Myalgia, Generalized muscle ache Disposition: Home, Self-Care Condition on Discharge: Fair Instructions: DI for Arthralgia, DI for Joint Pain Additional Instructions: You have been evaluated for body aches, shoulders and hips. Please take anti-inflammatories and steroids. Follow-up with your primary care doctor within 24 to 48 hours. Return to the emergency department at once for any new or worsening symptoms, fevers, chills, vomiting, other concerns. Prescriptions: Ibuprofen [Ibuprofen 600mg Tablet] 600 mg PO DAILY #15 tab Transmission Status: Pending to [facility] predniSONE [Prednisone 20mg Tab] 20 mg PO DAILY #5 tab Transmission Status: Pending to [facility] Referrals: Erica Gtz [Primary Care Provider] - Time of Disposition: 19:40 - Critical Care Critical Care Time: No Attestation: On 04/26/21, the high probability of a clinically significant, sudden or life threatening deterioration of the following system(s) required my full and direct attention, intervention and personal management. The time I documented below is in addition to time spent performing reported procedures but includes the following listed in this critical care notation. Medical Decision Making - Medical Records Medical records reviewed: Yes: I reviewed the patient's medical records. - Otto Inquiry Pt receiving controlled substance: No Vital Signs: 04/26/21 17:20 Temperature 98.5 F Temperature Source Oral Pulse Rate [Left Radial] 87 Respiratory Rate 18 Blood Pressure [Left Arm] 129/84 Blood Pressure Mean [Left Arm] 99 Blood Pressure Source [Left Arm] Automatic Cuff Blood Pressure Position [Left Arm] Sitting 02 Sat by Pulse Oximetry 98 Oxygen Delivery Method Room Air - Lab Data Lab Results 04/26/21 18:30: Urine Color Yellow, Urine Appearance Clear, Urine pH 6.0, Ur Specific [place] >= 1.030, Urine Protein Negative, Urine Glucose (UA) Negative, Urine Ketones Negative, Urine Blood 2+, Urine Nitrate Negative, Urine Bilirubin 1+ A, Urine Urobilinogen 0.2, Ur Leukocyte Esterase Negative, Urine RBC 5-10, Urine WBC None, Ur Squamous Epith Cells Occasional, Urine Bacteria Trace 04/26/21 18:30: WBC 8.9, RBC 4.20, Hgb 13.2, Hct 42.4, MCV 100.9 H, MCH 31.4 H, MCHC 31.1 L, RDW 14.6, Plt Count 396, MPV 9.5, Neut % (Auto) 66.2, Lymph % (Auto) 24.9, [place] % (Auto) 5.2, Eos % (Auto) 3.4, Baso % (Auto) 0.5, Neut # (Auto) 5.9, Lymph # (Auto) 2.2, [place] # (Auto) 0.5, Eos # (Auto) 0.3, Baso # (Auto) 0.0 04/26/21 18:30: Sodium 140, Potassium 3.6, Chloride 106, Carbon Dioxide 27, Anion Gap 10.6, BUN 14, Creatinine 0.60, Estimated Creat Clear 173, Estimated GFR 106, Est GFR ( Amer) 128, Glucose 85, Calcium 9.5, Total Bilirubin 0.4, AST 26, ALT 14, Alkaline Phosphatase 115, Total Creatine Kinase 24 L, Total Protein 6.9, Albumin 3.8, Globulin 3.1, Albumin/Globulin Ratio 1.2 04/26/21 18:30: SARS-CoV-2 (PCR) Not detected, Influenza A Untype (PCR) Not detected, Influenza Type B (PCR) Not detected Result diagrams: 04/26/21 18:30 04/26/21 18:30 Orders (Tests/Meds): ED MEDICATIONS Generic Name Dose Route Start Last Admin Trade Name Freq PRN Reason Stop Dose Admin Sodium Chloride 500 mls @ 500 mls/hr 04/26/21 17:45 04/26/21 18:19 Sod Chloride 0.9% 500ml Bag IV 05/26/21 17:44 500 mls/hr .Q1H JACK Administration Discontinued Medications Generic Name Dose Route Start Last Admin Trade Name Freq PRN Reason Stop Dose Admin Hydrocodone Bitart/Acetaminophen 1 tab 04/26/21 17:34 04/26/21 18:19 Hydrocodone/Apap 5/325 Mg Tablet PO 04/26/21 17:35 1 tab ONCE ONE Administration Medical Decision Narrative: In summary this is a 51-year-old female presenting to the emergency department with muscle aches and extremity pain after a cystoscopy procedure. Patient clinically stable on arrival. Vital signs within normal limits. Concern for viral syndrome, COVID
[2021-04-26 18:44] LABS: Coronavirus 19, PCR Not Detected (NotDetected); Influenza A, PCR Not Detected (NotDetected); Influenza B, PCR Not Detected (NotDetected); Microscopic, Urine URINE MICROSCOPIC (MICROSCOPIC)
[2021-04-26 18:59] LABS: Appearance,Urine CLEAR (Clear); Blood, Urine 2+ (Negative); Color,Urine YELLOW (Yellow); Glucose,Urine (UA) Negative (Negative); Ketones,Urine Negative (Negative); Leukocyte Esterase,Urine Negative (Negative); Nitrate,Urine Negative (Negative); Protein,Urine Negative (Negative); Specific Gravity, Urine >= 1.030 (1.005-1.030); Urobilinogen,Urine 0.2 EU/dl (0.2)
[2021-04-26 19:02] LABS: Alanine Aminotransferase 14 U/L (12-78); Albumin Level 3.8 g/dl (3.5-5.0); Albumin/Globulin Ratio 1.2 (1.1-1.8); Alkaline Phosphatase 115 U/L (38-126); Anion Gap 10.6 mEq/L (5-15); Aspartate Amino Transferase 26 U/L (14-36); Bilirubin,Total 0.4 mg/dl (0.2-1.3); Blood Urea Nitrogen 14 mg/dl (7-17); Calcium 9.5 mg/dl (8.4-10.2); Carbon Dioxide 27 mmol/L (22.0-30.0); Chloride 106 mmol/L (98-107); Creatine Kinase 24 U/L (30-135); Creatinine Clearance Estimated 173 mL/min (50-200); Estimated Glomerular Filt Rate 106 ml/min (>60); GFR (African American) 128 ML/MIN (>60); Globulin 3.1 g/dL (1.3-3.2); Glucose 85 mg/dl (74-100); Potassium 3.6 mmoL/L (3.5-5.1); Sodium 140 mmol/L (136-145); Total Protein,Serum 6.9 g/dl (6.3-8.2)
[2021-04-26 19:11] LABS: Basophils % 0.5 % (0.1-2.0); Eosinophils # 0.3 K/mm3 (0.0-0.4); Eosinophils % 3.4 % (0.1-12.0); Hematocrit 42.4 % (37.0-47.0); Hemoglobin 13.2 g/dL (12.2-16.2); Lymphocytes # 2.2 K/mm3 (0.7-4.5); Lymphocytes % 24.9 % (10-50); Mean Corpuscular HGB Conc 31.1 g/dL (31.8-35.4); Mean Corpuscular Hemoglobin 31.4 pg (27.0-31.2); Mean Corpuscular Volume 100.9 fl (81-99); Mean Platelet Volume 9.5 fl (7.4-10.4); Monocytes # 0.5 K/mm3 (0.1-1.0); Monocytes % 5.2 % (1.7-9.3); Neutrophils # 5.9 K/mm3 (1.8-7.8); Neutrophils % 66.2 % (37.0-80.0); Platelet Count 396 K/mm3 (142-424); Red Cell Distribution Width 14.6 % (11.5-17.5); White Blood Count 8.9 K/mm3 (4.8-10.8)
[2021-04-26 19:16] LABS: Bilirubin,Urine 1+ (Negative)
[2021-04-26 19:17] LABS: Bacteria,Urine Trace /lpf; Squamous Epithelial Cell,Urine Occasional #/hpf (0-5)
[2021-04-26 19:45] VITALS: BP 124/81; PULSE 91; RESP 16; TEMP 36.9; O2SAT 98
== END 2021-04-26 19:47 | disposition home or self-care (01) ==
PROVIDERS: Emergency Provider Emergency Medicine; PCP Nurse Practitioner Family
DX: M79.18 Myalgia, other site (principal); Z20.822 Contact with and (suspected) exposure to COVID-19; I10 Essential (primary) hypertension; E78.5 Hyperlipidemia, unspecified; I25.2 Old myocardial infarction; Z88.6 Allergy status to analgesic agent; F17.210 Nicotine dependence, cigarettes, uncomplicated
CPT/HCPCS: 80053; 81001; 82550; 85025; 96365; 99282; U0003

== ENCOUNTER 2021-07-07 16:42 | Emergency (ER) | payer MEDICAID, SELFPAY ==
[2021-07-07 17:35] VITALS: BP 140/80; PULSE 86; RESP 20; TEMP 36.6; O2SAT 98; BMI 32.3
--- NOTE | 2021-07-07 18:40 | HMH.EDUTC ---
[facility] [place] Clinical Impression: URI (upper respiratory infection) Qualifiers: URI type: unspecified URI Qualified Code(s): J06.9 - Acute upper respiratory infection, unspecified Disposition: Home, Self-Care Condition on Discharge: Good Instructions: Sinusitis, DI for Sinusitis, Sore Throat, DI for Cough -- Adult Additional Instructions: ? Start antibiotic today. Be sure to complete entire prescription even if feeling better ? Monitor temp. Tylenol every 4 hours as needed and / or ibuprofen every 6 hours as needed ( As long as your primary care physician has told you that it ok to take both. For fever/aches/pains ER if no less than 101 despite Tylenol or Motrin ? Humidifier/vaporizer or hot steamy shower ? Inhaler every 4-6 hours as needed like we discussed. If unsure how to use it, ask pharmacist to demonstrate how. Should help open airways and improve cough, wheezing, and shortness of breath *Tessalon Perles will not cause drowsiness but use at bedtime to help stop cough so that you may get some rest. *Start steroid today. Helps with inflammation therefore, cough and wheezing. Follow directions on the package. Reviewed side effects. Patient reports taking them before. Follow up IMMEDIATELY for new or worsening of symptoms OR no noticeable improvement over the next 48-72 hours. 911 immediately for any life threatening symptoms such as chest pain or difficulty breathing Prescriptions: predniSONE [Deltasone 10mg tablet] 10 mg PO BID 5 Days #10 tab Transmission Status: Pending to [facility] Cefdinir [Omnicef 300mg Capsule] 300 mg PO BID #20 cap [facility] Referrals: Provider,Referral, [Primary Care Provider] - Time of Disposition: 18:51 Medical Decision Making - Otto Inquiry Pt receiving controlled substance: No Otto was queried for this patient: No Vital Signs: 07/07/21 17:35 Temperature 97.9 F Temperature Source Oral Pulse Rate [Right Brachial] 86 Respiratory Rate 20 Blood Pressure [Right Arm] 140/80 Blood Pressure Mean [Right Arm] 100 Blood Pressure Source [Right Arm] Automatic Cuff Blood Pressure Position [Right Arm] Sitting 02 Sat by Pulse Oximetry 98 Oxygen Delivery Method Room Air [facility] [place] HPI - General Stated complaint: cough,congestion,runny nose Time Seen by Provider: 07/07/21 18:40 Mode of Arrival: Ambulatory Source of Information: Patient Limitations: No Limitations Description of Symptoms (Recalled from Triage Doc. by RN): PATIENT C/O COUGH, RUNNY NOSE AND CONGESTION SINCE YESTERDAY HEENT Symptoms (Recalled from RN notes): Yes Resp Symptoms (Recalled from RN notes): Yes Skin Symptoms (Recalled from RN notes): No MS Symptoms (Recalled from RN notes): No Functional Status (Recalled from RN notes): WNL - History of Present Illness Provider Complaint: Patient states that she hasnt felt well for several days and thinks she may have a URI States that she has been having sore and scratchy throat for several days, nasal congestion and drainage along with cough States that mich recently changed colors and is now yellowish green so she came in to get checked - Related Data Home Medications Medication Instructions Recorded Confirmed aspirin 81 mg tablet,delayed 81 mg PO ONCE tab 10/17/17 11/01/19 release atorvastatin 40 mg tablet 40 mg PO ONCE 10/17/17 11/01/19 lisinopril 5 mg tablet 5 mg PO ONCE 10/17/17 11/01/19 oxycodone-acetaminophen 5 mg-325 7.5 tab PO DAILY #90 tab 12/28/18 11/01/19 mg tablet clopidogrel 75 mg tablet 75 mg PO DAILY 11/01/19 11/01/19 Previous Rx's Medication Instructions Recorded azithromycin 250 mg tablet 250 mg PO QDAY #6 tab 11/01/19 methylprednisolone 4 mg tablets in See Rx Instructions PO PER PKG DIR 11/01/19 a dose pack #21 tab cephALEXin [cephALEXin 500mg 500 mg PO TID #30 cap 03/15/21 capsule*] predniSONE [Prednisone 20mg 20 mg PO BID #10 tab 03/15/21 Tab] Ibuprofen [Ibuprof
[2021-07-07 19:00] VITALS: BP 140/80; PULSE 86; RESP 20; TEMP 36.6; O2SAT 98
== END 2021-07-07 19:03 | disposition home or self-care (01) ==
PROVIDERS: Emergency Provider Nurse Practitioner
DX: J06.9 Acute upper respiratory infection, unspecified (principal); I10 Essential (primary) hypertension; E78.5 Hyperlipidemia, unspecified; I25.2 Old myocardial infarction; Z79.899 Other long term (current) drug therapy
CPT/HCPCS: 99202; G0463

== ENCOUNTER → 2022-01-03 13:24 | Outpatient (CLI) | payer MEDICAID, SELFPAY ==
--- NOTE | 2022-01-03 13:28 | XR_ITS ---
FINAL REPORT CLINICAL HISTORY: LUMBAR RADICULOPATHY FINDINGS: LUMBAR SPINE 5 views of the lumbar spine were obtained. There is no evidence of fracture or dislocation. The vertebral alignment is normal. There are mild degenerative changes with osteophyte formation. There are vascular calcifications. IMPRESSION: Mild degenerative change without acute bony abnormality. Reviewed, Interpreted and Dictated by Roque Shetty III, MD Transcribed by Pamela Colorado Authenticated by Roque Shetty III, MD on 01/03/2022 02:59:31 PM [facility]
== END ==
PROVIDERS: PCP Nurse Practitioner Family; Visit Provider Anesthesiology
DX: M54.16 Radiculopathy, lumbar region (principal)
CPT/HCPCS: 72110

== ENCOUNTER 2022-01-23 14:00 | Outpatient (RCR) | payer MEDICAID, SELFPAY | END 2022-01-23 14:05 | disposition home or self-care (01) | LOC: PT 14:00 | PROVIDERS: PCP Nurse Practitioner Family; Visit Provider Anesthesiology | DX: M54.16 Radiculopathy, lumbar region (principal) | CPT/HCPCS: 97010; 97012; 97014; 97110; 97163; G0283 ==

== ENCOUNTER 2022-01-25 17:34 | Emergency (ER) | payer MEDICAID, SELFPAY ==
[2022-01-25 17:36] VITALS: BP 142/93; PULSE 97; RESP 16; TEMP 36.7; O2SAT 98; BMI 35.5
[2022-01-25 17:42] VITALS: BP 142/93; PULSE 97; O2SAT 96
[2022-01-25 18:01] VITALS: BP 160/89; PULSE 93; O2SAT 97
[2022-01-25 19:30] VITALS: BP 132/91; PULSE 86; RESP 19; O2SAT 98
[2022-01-25 20:00] VITALS: BP 132/84; PULSE 89; RESP 19; O2SAT 98
--- NOTE | 2022-01-25 20:00 | HMH.EDBACK ---
ED Disposition Clinical Impression: Lumbar radiculopathy Disposition: Home, Self-Care Condition on Discharge: Good Instructions: DI for Low Back Pain, Lumbar Radiculopathy Additional Instructions: Follow-up with your primary care physician in 2 to 3 days for further management. You have been prescribed Robaxin, lidocaine patches and oxycodone to use as prescribed. Please return for any concerning symptoms such as urinary retention, fecal incontinence, inability to ambulate, worsening numbness or weakness or any other concerns. Please keep your appointment on Sunday with pain clinic. Also please continue your physical therapy. Prescriptions: Lidocaine [Lidocaine 5% patch] 1 patch TP DAILY #15 patch Transmission Status: Received by [facility] methocarbamoL [Methocarbamol 500mg Tablet] 500 mg PO BID 30 Days #60 tab Transmission Status: Received by [facility] Referrals: Radha Heredia APRN [Primary Care Provider] - - Critical Care Critical Care Time: No Attestation: On 01/25/22, the high probability of a clinically significant, sudden or life threatening deterioration of the following system(s) required my full and direct attention, intervention and personal management. The time I documented below is in addition to time spent performing reported procedures but includes the following listed in this critical care notation. Medical Decision Making - Medical Records Medical records reviewed: Yes: I reviewed the patient's medical records. - Otto Inquiry Pt receiving controlled substance: No Vital Signs: 01/25/22 17:36 01/25/22 17:42 01/25/22 18:01 Temperature 98.0 F Temperature Source Oral Pulse Rate 97 H 93 H Pulse Rate [Right Radial] 97 H Respiratory Rate 16 Blood Pressure 142/93 H 160/89 H Blood Pressure [Right Arm] 142/93 H Blood Pressure Mean Blood Pressure Mean [Right Arm] 109 Blood Pressure Source Automatic Cuff Automatic Cuff Blood Pressure Source [Right Arm] Automatic Cuff Blood Pressure Position Sitting Sitting Blood Pressure Position [Right Arm] Sitting 02 Sat by Pulse Oximetry 98 96 97 Oxygen Delivery Method Room Air Room Air Room Air 01/25/22 19:30 01/25/22 20:00 01/25/22 20:03 Temperature 98.2 F Temperature Source Oral Pulse Rate 86 89 90 Pulse Rate [Right Radial] Respiratory Rate 19 19 20 Blood Pressure 132/91 H 132/84 109/89 L Blood Pressure [Right Arm] Blood Pressure Mean 113 100 94 Blood Pressure Mean [Right Arm] Blood Pressure Source Blood Pressure Source [Right Arm] Blood Pressure Position Sitting Blood Pressure Position [Right Arm] 02 Sat by Pulse Oximetry 98 98 98 Oxygen Delivery Method Room Air - Lab Data Lab results reviewed: Yes: I reviewed the patient's lab results. Orders (Tests/Meds): ED MEDICATIONS Discontinued Medications Generic Name Dose Route Start Last Admin Trade Name Freq PRN Reason Stop Dose Admin Lidocaine 1 each 01/25/22 17:58 01/25/22 19:53 Lidocaine 5% Transdermal Patch TP 01/25/22 17:59 1 each ONCE ONE Administration Methocarbamol 500 mg 01/25/22 21:00 01/25/22 19:53 Methocarbamol 500mg Tablet PO 02/24/22 20:59 500 mg BID JACK Administration Oxycodone/Acetaminophen 1 each 01/25/22 17:57 01/25/22 19:53 Oxycodone 10mg W/Apap 325mg Tablet PO 01/25/22 17:58 1 each ONCE ONE Administration Medical Decision Narrative: Mrs. Schmitt is a 51-year-old female with past medical history for chronic lower back pain presenting to the emergency department for worsening lower back pain following physical therapy on Sunday. Patient is neurovascularly intact and hemodynamically stable on arrival. Patient denies any red flag symptoms. No fevers, weight loss, urinary retention, fecal incontinence or saddle anesthesia. Patient ambulatory prior to arrival. Patient has appointment with pain clinic on Sunday. In the setting of no trauma no further imag
[2022-01-25 20:03] VITALS: BP 109/89; PULSE 84; PULSE 90; RESP 18; RESP 20; TEMP 36.8; O2SAT 97; O2SAT 98
== END 2022-01-25 20:10 | disposition home or self-care (01) ==
PROVIDERS: Emergency Provider Student in an Organized Health Care Education/Training Program; PCP Nurse Practitioner Family
DX: M54.16 Radiculopathy, lumbar region (principal); I10 Essential (primary) hypertension; F17.210 Nicotine dependence, cigarettes, uncomplicated; E78.5 Hyperlipidemia, unspecified
CPT/HCPCS: 99283

== ENCOUNTER → 2022-02-07 13:08 | Outpatient (CLI) | payer MEDICAID, SELFPAY ==
--- NOTE | 2022-02-07 13:11 | MR_ITS ---
FINAL REPORT CLINICAL HISTORY: RADICULOPATHY, LUMBAR REGION. LBP X1YR. RIGHT LEG PAIN, NUMBNESS, AND TINGLING X1YR. NO RECENT INJURY OR TRAUMA. FINDINGS: MRI LUMBAR SPINE W/O CONTRAST Multiplanar MR imaging of the lumbar spine was performed without contrast. On the sagittal T2-weighted images, disc degeneration is seen at multiple levels. The vertebral alignment is normal. There is no evidence of fracture. The conus has an unremarkable appearance. 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 L1-2: No significant central canal stenosis or neural foraminal narrowing. L2-3: An annular bulge is present. L3-4: An annular bulge is present. There is mild bilateral neural foraminal narrowing. L4-5: An annular bulge is present. There is a posterior midline annular tear. There is a small central disc protrusion. There is mild bilateral neural foraminal narrowing. L5-S1: An annular bulge is present. There is a right posterior lateral disc protrusion. There is moderate right neural foraminal narrowing. IMPRESSION: Multilevel disc degeneration and spondylosis. Posterior midline annular tear at L4-L5 with a small central disc protrusion. Right posterior lateral disc protrusion at L5-S1. Reviewed, Interpreted and Dictated by Roque Shetty III, MD Transcribed by Pamela Colorado Authenticated and [facility]
== END ==
PROVIDERS: PCP Nurse Practitioner Family; Visit Provider Nurse Practitioner Family
DX: M54.16 Radiculopathy, lumbar region (principal)
CPT/HCPCS: 72148; 76376

== ENCOUNTER 2022-03-22 20:10 | Emergency (ER) | payer MEDICAID, SELFPAY ==
[2022-03-22 20:12] VITALS: BP 163/103; PULSE 105; RESP 18; TEMP 36.9; O2SAT 99; BMI 35.5
[2022-03-22 21:01] VITALS: BP 161/103; PULSE 94; O2SAT 98
--- NOTE | 2022-03-22 22:03 | HMH.EDBACK ---
ED Disposition Clinical Impression: Lumbar radiculopathy Disposition: Home, Self-Care Condition on Discharge: Good Instructions: DI for Low Back Pain Additional Instructions: call pcp for follow up Referrals: Radha Heredia APRN [Primary Care Provider] - - Critical Care Critical Care Time: No Attestation: On 03/22/22, the high probability of a clinically significant, sudden or life threatening deterioration of the following system(s) required my full and direct attention, intervention and personal management. The time I documented below is in addition to time spent performing reported procedures but includes the following listed in this critical care notation. Medical Decision Making - Medical Records Medical records reviewed: Yes: I reviewed the patient's medical records. - Otto Inquiry Pt receiving controlled substance: No Vital Signs: 03/22/22 20:12 Temperature 98.5 F Temperature Source Oral Pulse Rate [Right] 105 H Respiratory Rate 18 Blood Pressure [Right Arm] 163/103 H Blood Pressure Mean [Right Arm] 123 02 Sat by Pulse Oximetry 99 - Lab Data Lab results reviewed: Yes: I reviewed the patient's lab results. Medical Decision Narrative: acute exacerbation of lumbar radicular pain w/o cauda equina sx Back Pain HPI - General Chief Complaint: Back Pain/Injury Stated Complaint: back pain Time Seen by Provider: 03/22/22 22:03 Mode of Arrival: Ambulatory Source of Information: Patient, Medical Record Limitations: No Limitations Description of Symptoms (Recalled from ER Triage Doc. by RN): pt c/o lower back pain that started yesterday and progessive gotten worse today. - History of Present Illness HPI Narrative: pt with lower back pain which has been increasing w/o fever/rash or trauma- and no cauda equina sx - pt with recent mri which was reviewed and has seen pcp and has pending neuro consult Complaint: back pain Onset (ago): day(s) Similar Symptoms Previously: Yes Location: lumbar spine Severity: moderate Quality: sharp Radiation: right leg Associated symptoms: denies other symptoms - Related Data Home Medications Medication Instructions Recorded Confirmed aspirin 81 mg tablet,delayed 81 mg PO ONCE tab 10/17/17 11/01/19 release atorvastatin 40 mg tablet 40 mg PO ONCE 10/17/17 11/01/19 lisinopril 5 mg tablet 5 mg PO ONCE 10/17/17 11/01/19 oxycodone-acetaminophen 5 mg-325 7.5 tab PO DAILY #90 tab 12/28/18 11/01/19 mg tablet clopidogrel 75 mg tablet 75 mg PO DAILY 11/01/19 11/01/19 Previous Rx's Medication Instructions Recorded azithromycin 250 mg tablet 250 mg PO QDAY #6 tab 11/01/19 methylprednisolone 4 mg tablets in See Rx Instructions PO PER PKG DIR 11/01/19 a dose pack #21 tab cephALEXin [cephALEXin 500mg 500 mg PO TID #30 cap 03/15/21 capsule*] predniSONE [Prednisone 20mg 20 mg PO BID #10 tab 03/15/21 Tab] Ibuprofen [Ibuprofen 600mg 600 mg PO DAILY #15 tab 04/26/21 Tablet] predniSONE [Prednisone 20mg 20 mg PO DAILY #5 tab 04/26/21 Tab] Benzonatate [Benzonatate 100mg 100 mg PO TID PRN #30 cap 07/07/21 cap] Cefdinir [Omnicef 300mg Capsule] 300 mg PO BID #20 cap 07/07/21 predniSONE [Deltasone 10mg tablet] 10 mg PO BID 5 Days #10 tab 07/07/21 Lidocaine [Lidocaine 5% patch] 1 patch TP DAILY #15 patch 01/25/22 methocarbamoL [Methocarbamol 500mg 500 mg PO BID 30 Days #60 tab 01/25/22 Tablet] oxycodone-acetaminophen 5 mg-325 1 tab PO TID PRN #9 tab 01/26/22 mg tablet Allergies Allergy/AdvReac Type Severity Reaction Status Date / Time codeine [CODEINE] Allergy Unknown Verified 11/01/19 12:34 ketorolac [From TORADOL] Allergy Unknown Verified 11/01/19 12:34 naproxen [NAPROXEN] Allergy Unknown Verified 11/01/19 12:34 tramadol [TRAMADOL] Allergy Unknown Verified 11/01/19 12:34 INEPSIDE Allergy Unknown Uncoded 11/01/19 12:34 CODEINE AdvReac Unknown VOMITING Uncoded 11/01/19 12:34 From NAPROSYN AdvReac Unknown
[2022-03-22 22:38] VITALS: BP 164/78; PULSE 91; RESP 18; TEMP 36.9; O2SAT 99
== END 2022-03-22 22:39 | disposition home or self-care (01) ==
PROVIDERS: Emergency Provider Emergency Medicine; PCP Nurse Practitioner Family
DX: M54.16 Radiculopathy, lumbar region (principal); Z79.82 Long term (current) use of aspirin; Z79.899 Other long term (current) drug therapy; Z88.6 Allergy status to analgesic agent; I25.10 Atherosclerotic heart disease of native coronary artery without angina pectoris; E78.5 Hyperlipidemia, unspecified; I10 Essential (primary) hypertension; I25.2 Old myocardial infarction; Z72.0 Tobacco use
CPT/HCPCS: 96372; 96374; 99284

== ENCOUNTER 2022-05-14 21:10 | Emergency (ER) | payer MEDICAID, SELFPAY ==
[2022-05-14 21:12] VITALS: BP 160/105; PULSE 82; RESP 18; TEMP 36.7; O2SAT 95; BMI 31.9
[2022-05-15 00:20] VITALS: BP 144/68; PULSE 83; RESP 18; TEMP 36.6; O2SAT 98
--- NOTE | 2022-05-15 00:32 | HMH.EDSKAF ---
Discharge Plan Disposition Patient Disposition: Home, Self-Care Condition: Good Prescriptions Prescriptions: New amoxicillin-pot clavulanate [Augmentin] 500-125 mg tablet 1 tab PO Q8H Qty: 30 0RF No Action oxycodone-acetaminophen 5-325 mg tablet 7.5 tab PO DAILY Qty: 90 clopidogrel [Plavix] 75 mg tablet 75 mg PO DAILY azithromycin [Zithromax Z-Jose] 250 mg tablet 250 mg PO QDAY Qty: 6 0RF Rx Instructions: Take 2 pills the first day and then one tablet per day. Hold cholesterol medication while taking Z-Jose. methylprednisolone [Medrol (Jose)] 4 mg tablets,dose pack See Rx Instructions PO PER PKG DIR Qty: 21 0RF Rx Instructions: PO PER PKG DIR lisinopril 5 mg tablet 5 mg PO ONCE atorvastatin 40 mg tablet 40 mg PO ONCE aspirin [Adult Low Dose Aspirin] 81 mg tablet,delayed release (DR/EC) 81 mg PO ONCE oxycodone-acetaminophen 5-325 mg tablet 1 tab PO TID PRN (Reason: pain) Qty: 9 0RF prednisone 20 MG tablet 20 mg PO DAILY Qty: 5 0RF ibuprofen 600 MG tablet 600 mg PO DAILY Qty: 15 0RF methocarbamol 500 MG tablet 500 mg PO BID 30 Days Qty: 60 0RF lidocaine 0.05 MG/MG adhesive patch,medicated 1 patch TP DAILY Qty: 15 0RF prednisone 20 MG tablet 20 mg PO BID Qty: 10 0RF cephalexin 500 MG capsule 500 mg PO TID Qty: 30 0RF prednisone 10 MG tablet 10 mg PO BID 5 Days Qty: 10 0RF cefdinir 300 MG capsule 300 mg PO BID Qty: 20 0RF benzonatate 100 MG capsule 100 mg PO TID PRN (Reason: Cough) Qty: 30 0RF Referrals Follow up/Referrals: Radha Heredia APRN [Primary Care Provider] - See instructions Clinical Impressions Clinical Impression: Cat bite involving extremity Instructions Patient Instructions: DI for Cat Bite Discharge ED Provider: Catrachito Hunt Skin/Abscess/FB HPI General Chief complaint: Skin/Abscess/Foreign Body Stated complaint: [id number]/10@1600@friends attach by cat Time Seen by Provider: 05/15/22 00:32 Mode of Arrival: Ambulatory Source of Information: Patient Limitations: No Limitations Description of Symptoms (Recalled from ER Triage Doc. by RN): PT HAS MULTIPLE RED IRRITATED AREAS THAT ARE WARM TO THE TOUCH AFTER BEING SCRATCHED BY A CAT. History of Present Illness HPI narrative: scratched and bitten by friends house cat - has progressive areas tender and painful w/o d/c or fever - including scalp and rt lower leg MD complaint: other (cat bite ) Onset (ago): day(s) Tetanus up to date: yes Location: head and RUE Severity: moderate Quality: sharp Consistency: intermittent Associated symptoms: denies other symptoms Treatments prior to arrival: none Related Data Home Medications Medication Instructions Recorded Confirmed aspirin 81 mg tablet,delayed 81 mg PO ONCE heart health 10/17/17 11/01/19 release (Adult Low Dose Aspirin) atorvastatin 40 mg tablet 40 mg PO ONCE Cholesterol 10/17/17 11/01/19 lisinopril 5 mg tablet 5 mg PO ONCE High blood pressure 10/17/17 11/01/19 oxycodone-acetaminophen 5 mg-325 7.5 tab PO DAILY pain #90 tabs 12/28/18 11/01/19 mg tablet clopidogrel 75 mg tablet (Plavix) 75 mg PO DAILY 11/01/19 11/01/19 Previous Rx's Medication Instructions Recorded azithromycin 250 mg tablet 250 mg PO QDAY #6 tabs 11/01/19 (Zithromax Z-Jose) methylprednisolone 4 mg tablets in See Rx Instructions PO PER PKG DIR 11/01/19 a dose pack (Medrol (Jose)) #21 tabs cephalexin 500 mg capsule 500 mg PO TID #30 caps 03/15/21 prednisone 20 mg tablet 20 mg PO BID #10 tabs 03/15/21 ibuprofen 600 mg tablet 600 mg PO DAILY #15 tabs 04/26/21 prednisone 20 mg tablet 20 mg PO DAILY #5 tabs 04/26/21 benzonatate 100 mg capsule 100 mg PO TID PRN Cough #30 caps 07/07/21 cefdinir 300 mg capsule 300 mg PO BID #20 caps 07/07/21 prednisone 10 mg tablet 10 mg PO BID 5 days #10 tabs 07/07/21 lidocaine 5 % topical patch 1 patch topical DAILY #15 patches 01/25/22 methocarbamol 500 mg tablet
--- NOTE | 2022-05-15 03:35 | HMH.EDSKAF ---
Discharge Plan Disposition Patient Disposition: Home, Self-Care Condition: Good Prescriptions Prescriptions: New amoxicillin-pot clavulanate [Augmentin] 500-125 mg tablet 1 tab PO Q8H Qty: 30 0RF No Action oxycodone-acetaminophen 5-325 mg tablet 7.5 tab PO DAILY Qty: 90 clopidogrel [Plavix] 75 mg tablet 75 mg PO DAILY azithromycin [Zithromax Z-Jose] 250 mg tablet 250 mg PO QDAY Qty: 6 0RF Rx Instructions: Take 2 pills the first day and then one tablet per day. Hold cholesterol medication while taking Z-Jose. methylprednisolone [Medrol (Jose)] 4 mg tablets,dose pack See Rx Instructions PO PER PKG DIR Qty: 21 0RF Rx Instructions: PO PER PKG DIR lisinopril 5 mg tablet 5 mg PO ONCE atorvastatin 40 mg tablet 40 mg PO ONCE aspirin [Adult Low Dose Aspirin] 81 mg tablet,delayed release (DR/EC) 81 mg PO ONCE oxycodone-acetaminophen 5-325 mg tablet 1 tab PO TID PRN (Reason: pain) Qty: 9 0RF hydrocodone-acetaminophen 5-325 mg tablet 1 tab PO TID PRN (Reason: pain) Qty: 15 0RF prednisone 20 MG tablet 20 mg PO DAILY Qty: 5 0RF ibuprofen 600 MG tablet 600 mg PO DAILY Qty: 15 0RF methocarbamol 500 MG tablet 500 mg PO BID 30 Days Qty: 60 0RF lidocaine 0.05 MG/MG adhesive patch,medicated 1 patch TP DAILY Qty: 15 0RF prednisone 20 MG tablet 20 mg PO BID Qty: 10 0RF cephalexin 500 MG capsule 500 mg PO TID Qty: 30 0RF prednisone 10 MG tablet 10 mg PO BID 5 Days Qty: 10 0RF cefdinir 300 MG capsule 300 mg PO BID Qty: 20 0RF benzonatate 100 MG capsule 100 mg PO TID PRN (Reason: Cough) Qty: 30 0RF Referrals Follow up/Referrals: Radha Heredia APRN [Primary Care Provider] - See instructions Clinical Impressions Clinical Impression: Cat bite involving extremity Instructions Patient Instructions: DI for Cat Bite Discharge ED Provider: Catrachito Hunt Skin/Abscess/FB HPI General Chief complaint: Skin/Abscess/Foreign Body Stated complaint: [id number]/10@1600@friends attach by cat Time Seen by Provider: 05/15/22 00:32 Mode of Arrival: Ambulatory Source of Information: Patient Limitations: No Limitations Description of Symptoms (Recalled from ER Triage Doc. by RN): PT HAS MULTIPLE RED IRRITATED AREAS THAT ARE WARM TO THE TOUCH AFTER BEING SCRATCHED BY A CAT. History of Present Illness HPI narrative: has skin injury after cat scratch MD complaint: other (cat bite ) Onset (ago): hour(s) Tetanus up to date: unsure Location: head and RUE Severity: moderate Associated symptoms: denies other symptoms Related Data Home Medications Medication Instructions Recorded Confirmed aspirin 81 mg tablet,delayed 81 mg PO ONCE heart health 10/17/17 11/01/19 release (Adult Low Dose Aspirin) atorvastatin 40 mg tablet 40 mg PO ONCE Cholesterol 10/17/17 11/01/19 lisinopril 5 mg tablet 5 mg PO ONCE High blood pressure 10/17/17 11/01/19 oxycodone-acetaminophen 5 mg-325 7.5 tab PO DAILY pain #90 tabs 12/28/18 11/01/19 mg tablet clopidogrel 75 mg tablet (Plavix) 75 mg PO DAILY 11/01/19 11/01/19 Previous Rx's Medication Instructions Recorded azithromycin 250 mg tablet 250 mg PO QDAY #6 tabs 11/01/19 (Zithromax Z-Jose) methylprednisolone 4 mg tablets in See Rx Instructions PO PER PKG DIR 11/01/19 a dose pack (Medrol (Jose)) #21 tabs cephalexin 500 mg capsule 500 mg PO TID #30 caps 03/15/21 prednisone 20 mg tablet 20 mg PO BID #10 tabs 03/15/21 ibuprofen 600 mg tablet 600 mg PO DAILY #15 tabs 04/26/21 prednisone 20 mg tablet 20 mg PO DAILY #5 tabs 04/26/21 benzonatate 100 mg capsule 100 mg PO TID PRN Cough #30 caps 07/07/21 cefdinir 300 mg capsule 300 mg PO BID #20 caps 07/07/21 prednisone 10 mg tablet 10 mg PO BID 5 days #10 tabs 07/07/21 lidocaine 5 % topical patch 1 patch topical DAILY #15 patches 01/25/22 methocarbamol 500 mg tablet 500 mg PO BID 30 days #60 tabs 01/25/22 oxycodone-acetaminophen 5 mg-325 1 tab PO
== END 2022-05-15 00:32 | disposition home or self-care (01) ==
PROVIDERS: Emergency Provider Emergency Medicine; PCP Nurse Practitioner Family
DX: R51.9 Headache, unspecified (principal); M79.661 Pain in right lower leg; W55.01XA Bitten by cat, initial encounter; W55.03XA Scratched by cat, initial encounter; Z79.899 Other long term (current) drug therapy
CPT/HCPCS: 99283

== ENCOUNTER 2022-07-05 17:42 | Observation (INO) | payer MEDICAID, SELFPAY ==
[2022-07-05 17:44] VITALS: BP 145/117; PULSE 104; RESP 18; TEMP 36.8; O2SAT 96; BMI 31.8
[2022-07-05 18:20] VITALS: BP 136/93; PULSE 102; RESP 15; O2SAT 96
[2022-07-05 18:30] VITALS: BP 121/84; PULSE 95; RESP 15; O2SAT 99
--- NOTE | 2022-07-05 18:34 | CT_ITS ---
PROCEDURE INFORMATION: Exam: CT Abdomen And Pelvis With Contrast Exam date and time: 07/05/2022 6:45 PM Age: 52 years old Clinical indication: Abdominal pain; Localized; Right lower quadrant (rlq); Additional info: Rlq pain TECHNIQUE: Imaging protocol: Computed tomography of the abdomen and pelvis with contrast. Radiation optimization: All CT scans at this facility use at least one of these dose optimization techniques: automated exposure control; mA and/or kV adjustment per patient size (includes targeted exams where dose is matched to clinical indication); or iterative reconstruction. Contrast material: ISOVUE; Contrast volume: 75 ml; Contrast route: IV; COMPARISON: MR LUMBAR SPINE WO CON 02/07/2022 1:16 PM FINDINGS: Lungs: Visualized lung bases are clear. Heart: Heart size normal. Moderate coronary artery calcification in the RCA distribution. Diaphragm: Moderate-sized hiatal hernia. Liver: Normal contour. No mass lesions. No intrahepatic biliary ductal dilatation. Gallbladder and bile ducts: Normal. No calcified stones. No ductal dilation. Pancreas: Normal. No inflammatory changes or ductal dilation. Spleen: Normal. No splenomegaly. Adrenal glands: Normal. No adrenal mass. Kidneys and ureters: Anomalous horseshoe kidney configuration noted. No hydronephrosis or hydroureter. No urinary tract stones are identified. Stomach and bowel: The stomach is largely contracted. There is a 3 cm aerated duodenal diverticulum near the ampulla. The small bowel is nondilated with no gross abnormality. There is mild distal colonic diverticulosis. There is short segment colonic wall thickening and adjacent stranding in the proximal sigmoid colon consistent with acute diverticulitis, with an inflamed diverticulum at the medial margin. No perforation or abscess. Appendix: The appendix is normal in caliber and demonstrates no evidence of appendicitis. Intraperitoneal space: No free fluid or air. Vasculature: No acute process. No abdominal aortic aneurysm. Moderate calcific atherosclerosis. Lymph nodes: No adenopathy. Urinary bladder: The urinary bladder is largely contracted with wall thickening which may relate to its contracted status. Mild adjacent stranding. Correlate with UA for evidence of cystitis. Reproductive: Unremarkable as visualized. Bilateral tubal ligation clips grossly well-positioned. Bones/joints: Grade 1 anterolisthesis L4-L5 with chronic right-sided unilateral spondylolysis versus facet anomaly. Soft tissues: Very small fatty umbilical hernia . No evidence of associated bowel herniation or strangulation. IMPRESSION: 1. Acute diverticulitis in the proximal sigmoid colon. No perforation or abscess. 2. Mild distal colonic diverticulosis. 3. Horseshoe kidney. 4. Question mild bladder wall thickening and adjacent stranding although probably related to contracted status, correlate with UA for evidence of cystitis. 5. Additional nonemergent findings detailed above.
[2022-07-05 18:39] LABS: Microscopic, Urine URINE MICROSCOPIC (MICROSCOPIC)
[2022-07-05 18:42] LABS: Basophils # 0.1 K/mm3 (0-0.2); Eosinophils # 0.3 K/mm3 (0.0-0.4); Eosinophils % 3.2 % (0.1-12.0); Hematocrit 41.2 % (37.0-47.0); Hemoglobin 13.3 g/dL (12.2-16.2); Lymphocytes # 2.2 K/mm3 (0.7-4.5); Lymphocytes % 24.8 % (10-50); Mean Corpuscular HGB Conc 32.2 g/dL (31.8-35.4); Mean Corpuscular Hemoglobin 32.7 pg (27.0-31.2); Mean Corpuscular Volume 101.6 fl (81-99); Mean Platelet Volume 8.4 fl (7.4-10.4); Monocytes # 0.5 K/mm3 (0.1-1.0); Neutrophils # 5.7 K/mm3 (1.8-7.8); Platelet Count 435 K/mm3 (142-424); Red Blood Count 4.06 M/mm3 (4.20-5.40); Red Cell Distribution Width 12.6 % (11.5-17.5); White Blood Count 8.8 K/mm3 (4.8-10.8)
[2022-07-05 18:43] LABS: Appearance,Urine SL CLOUDY (Clear); Bilirubin,Urine Negative (Negative); Blood, Urine 3+ (Negative); Color,Urine YELLOW (Yellow); Glucose,Urine (UA) Negative (Negative); Ketones,Urine TRACE (Negative); Leukocyte Esterase,Urine Negative (Negative); Nitrate,Urine Negative (Negative); PH,Urine 6.5 (5.0-8.5); Protein,Urine Negative (Negative)
[2022-07-05 18:45] VITALS: BP 125/83; PULSE 94; RESP 18; O2SAT 96
[2022-07-05 18:46] LABS: Alanine Aminotransferase 21 U/L (12-78); Albumin Level 3.8 g/dl (3.5-5.0); Albumin/Globulin Ratio 1.2 (1.1-1.8); Alkaline Phosphatase 180 U/L (38-126); Anion Gap 12.9 mEq/L (5-15); Aspartate Amino Transferase 30 U/L (14-36); Bilirubin,Total 0.4 mg/dl (0.2-1.3); Blood Urea Nitrogen 12 mg/dl (7-17); Calcium 9.9 mg/dl (8.4-10.2); Carbon Dioxide 30 mmol/L (22.0-30.0); Chloride 102 mmol/L (98-107); Creatinine Clearance Estimated 188 mL/min (50-200); Estimated Glomerular Filt Rate 130 ml/min (>60); GFR (African American) 157 ML/MIN (>60); Globulin 3.3 g/dL (1.3-3.2); Glucose 84 mg/dl (74-100); Lactic Acid 0.7 mmol/L (0.7-2.1); Lipase 41 U/L (23-300); Potassium 3.9 mmoL/L (3.5-5.1); Sodium 141 mmol/L (136-145); Total Protein,Serum 7.1 g/dl (6.3-8.2)
--- NOTE | 2022-07-05 18:52 | PC.NURSE ---
pt to radiology
--- NOTE | 2022-07-05 19:02 | PC.NURSE ---
pt back fom rad
[2022-07-05 19:03] LABS: Bacteria,Urine Trace /lpf
--- NOTE | 2022-07-05 19:16 | HMH.EDABDPAI ---
Discharge Plan Disposition Patient Disposition: Admitted As Inpatient Condition: Good Prescriptions Prescriptions: No Action venlafaxine 75 mg capsule,extended release 24hr 75 mg PO DAILY Label Comments: TAKE 1 CAPSULE BY MOUTH ONCE DAILY IN THE MORNING mirtazapine 15 mg tablet 15 mg PO HS Label Comments: TAKE 1 TABLET BY MOUTH AT BEDTIME Referrals Follow up/Referrals: Radha Heredia APRN [Primary Care Provider] - See instructions Clinical Impressions Clinical Impression: Diverticulitis Discharge ED Provider: Minal Sousa Abdominal Pain HPI General Chief Complaint: Abdominal Pain Stated Complaint: Abdominal pain Time Seen by Provider: 07/05/22 18:23 Mode of Arrival: Ambulatory Source of Information: Patient Limitations: No Limitations Description of Symptoms (Recalled from ER Triage Doc. by RN): Pt c/o R sided pelvic pain that began yesterday approx 3 pm. Pt denies n/v/d, fever, or urinary symptoms. Pt states pain worsens with movement. Pt reports pain is sharp in nature and constant. History of Present Illness HPI narrative: This patient is a 52-year-old female with a history of interstitial cystitis presenting to the emergency department for evaluation of severe right lower quadrant pain that started suddenly yesterday around 3 PM. She states that it feels similar to when she had an ovarian cyst rupture in the past. It is sharp and constant. It gets worse with any movement. Nothing seems to make it better. She denies fever, chills, nausea, vomiting, diarrhea, constipation, new dysuria, abnormal vaginal discharge, bleeding, or other concerns. Related Data Home Medications Medication Instructions Recorded Confirmed mirtazapine 15 mg tablet 15 mg PO HS Depression 07/05/22 07/05/22 venlafaxine 75 mg capsule,extended 75 mg PO DAILY Depression 07/05/22 07/05/22 release 24 hr Allergies Allergy/AdvReac Type Severity Reaction Status Date / Time codeine [CODEINE] Allergy Unknown Verified 11/01/19 12:34 ketorolac [From TORADOL] Allergy Unknown Verified 11/01/19 12:34 naproxen [NAPROXEN] Allergy Unknown Verified 11/01/19 12:34 tramadol [TRAMADOL] Allergy Unknown Verified 11/01/19 12:34 INEPSIDE Allergy Unknown Uncoded 11/01/19 12:34 CODEINE AdvReac Unknown VOMITING Uncoded 11/01/19 12:34 From NAPROSYN AdvReac Unknown VOMITING Uncoded 11/01/19 12:34 PFSH [facility] Social History Smoking Status: Current every day smoker tobacco type: cigarettes packs per day: 1 alcohol intake: never substance use type: denies use current occupational status: other Travel in the last 8 weeks: None household members: other housing: other ROS Obtained: Yes All systems reviewed & no additional complaints except as documented 14 point review of systems obtained and negative except as mentioned in HPI. Physical Exam General General appearance: alert and in no apparent distress Head Head exam: atraumatic and normocephalic Eye Eye exam: Present normal appearance, PERRL and EOMI ENT ENT exam: Present normal exam and normal oropharynx Neck Neck exam: Present normal inspection and full ROM Chest Chest inspection: Present normal inspection and symmetric chest wall rise Respiratory Respiratory exam: Present normal lung sounds bilaterally; Absent respiratory distress Cardiovascular Cardiovascular exam: Present regular rate and normal rhythm Abdominal Exam Abdominal exam: Present soft and tenderness (Right lower quadrant); Absent distention, guarding or rebound Extremities Exam Extremities exam: Present normal inspection Back Exam Back exam: Present normal inspection Neurological Exam Neurological exam: Present alert, oriented X3 and CN II-XII intact Psychiatric Psychiatric exam: Present normal affect and normal mood Skin Skin exam: Present warm and dry Medical Decision Making Otto Inquiry Pt receiving controlled substanc
--- NOTE | 2022-07-05 19:17 | PC.NURSE ---
shift change report given to omar winn and wilrn
[2022-07-05 20:17] LABS: Coronavirus 19, PCR Not Detected (NotDetected); Influenza A, PCR Not Detected (NotDetected); Influenza B, PCR Not Detected (NotDetected)
--- NOTE | 2022-07-05 20:26 | PC.NURSE ---
Pt complains of pain. RN and MD notified.
--- NOTE | 2022-07-05 21:05 | EXP.HP ---
History of Present Illness *Admission Date: 07/05/22 *Reason for visit:: Abdominal Pain *History of present illness: Ms. Schmitt is a 52-year-old female with a past medical history that is positive for Interstitial Cystitis s/p recent Cystoscopy, CAD s/p PCI, HTN, Hyperlipidemia, Depression and Anxiety. She presents to [facility] through the ER due to abdominal pain in the right lower abdominal quadrant that has been present and worsening for greater than 24 hours. The patient was seen on admission in the ER. She reports that the pain began the prior day to presentation at approximately 3pm. She reports that she has gotten no relief. She reports being nauseated with the pain, but denies vomiting. She also denies constipation or diarrhea. She reports a recent Cystoscopy prior to the event a few days before the pain began. In the ER, the patient underwent a CT of the abdomen and pelvis that showed findings consistent with acute diverticulitis in the sigmoid colon with no perforation or abscess and questionable mild bladder wall thickening with adjacent stranding. Urinalysis performed was not remarkable, but urine cultures were ordered. CBC and CMP were unremarkable along with Lactic Acid and Lipase. The patient will be admitted with initial impression of Acute Diverticulitis. Due to moderate symptoms she will be started on gram negative and anerobic coverage to cover for Acute Diverticulitis. She will be given pain control. Urine culture will be followed. The plan of care was discussed in length and detail with the patient prior to her admission. The patient verbalized understanding and agreement with the plan of care. [facility] Medical History (Updated 07/05/22 @ 21:17 by Neal Qureshi DNP) CAD (coronary artery disease) Hyperlipidemia Hypertension Interstitial cystitis Migraines Surgical History (Updated 07/05/22 @ 22:01 by Mary Ash RN) H/O cystoscopy History of percutaneous coronary intervention History of right heart catheterization (RHC) Social History (Updated 07/05/22 @ 22:03 by Mary Ash RN) Smoking Status: Current every day smoker tobacco type: cigarettes packs per day: 1 alcohol intake: never substance use type: denies use current occupational status: other Travel in the last 8 weeks: None household members: other housing: other Review of Systems Review of Systems Review of systems:: pertinent systems reviewed and negative unless documented below Constitutional Constitutional: Reports system reviewed and no additional complaints, except as documented Eyes Eyes: Reports system reviewed and no additional complaints, except as documented ENT Ears, Nose, Mouth, and Throat: Reports system reviewed and no additional complaints, except as documented *Cardiovascular Cardiovascular: Reports system reviewed and no additional complaints, except as documented *Respiratory Respiratory: Reports system reviewed and no additional complaints, except as documented *Gastrointestinal Gastrointestinal: Reports abdominal pain and Reports nausea *Genitourinary Genitourinary: Reports system reviewed and no additional complaints, except as documented *Musculoskeletal Musculoskeletal: Reports system reviewed and no additional complaints, except as documented Integumentary/Breasts Skin/Breast: Reports system reviewed and no additional complaints, except as documented *Neurologic Neurologic: Reports system reviewed and no additional complaints, except as documented Psychiatric Psychiatric: Reports system reviewed and no additional complaints, except as documented Endocrine Endocrine: Reports system reviewed and no additional complaints, except as documented Hematologic/Lymphatic Hematologic/Lymphatic: Reports system reviewed and no additional complaints, except as documented Allergic/Immunologic Allergic/Immunologic: Reports system reviewed and no additional complaints, except as documen
[2022-07-05 21:08] VITALS: BP 126/66; PULSE 66; RESP 18; TEMP 36.7; O2SAT 96; BMI 26.3
--- NOTE | 2022-07-05 21:23 | PC.NURSE ---
patient up to floor via wheelchair @ this time.
[2022-07-05 21:37] VITALS: BP 120/74; PULSE 90; RESP 16; TEMP 36.8; O2SAT 96
[2022-07-06 04:00] VITALS: BP 124/82; PULSE 87; RESP 16; TEMP 36.8; O2SAT 96
[2022-07-06 05:24] VITALS: BMI 31.4
--- NOTE | 2022-07-06 07:45 | HMH.PHAINT1 ---
Pharmacy Intervention Comments: HOME MEDICATION LIST VERIFIED USING LIST FROM OUTPATIENT PHARMACY AND PT INTERVIEW
[2022-07-06 08:00] VITALS: BP 142/77; PULSE 87; RESP 17; TEMP 37; O2SAT 96
--- NOTE | 2022-07-06 08:24 | EXP.DC.SUM ---
General Admission date:: 07/05/22 Discharge date: 07/06/22 HPI HPI HPI: Ms. Schmitt is a 52-year-old female with a past medical history that is positive for Interstitial Cystitis s/p recent Cystoscopy, CAD s/p PCI, HTN, Hyperlipidemia, Depression and Anxiety. She presents to [facility] through the ER due to abdominal pain in the right lower abdominal quadrant that has been present and worsening for greater than 24 hours. The patient was seen on admission in the ER. She reports that the pain began the prior day to presentation at approximately 3pm. She reports that she has gotten no relief. She reports being nauseated with the pain, but denies vomiting. She also denies constipation or diarrhea. She reports a recent Cystoscopy prior to the event a few days before the pain began. In the ER, the patient underwent a CT of the abdomen and pelvis that showed findings consistent with acute diverticulitis in the sigmoid colon with no perforation or abscess and questionable mild bladder wall thickening with adjacent stranding. Urinalysis performed was not remarkable, but urine cultures were ordered. CBC and CMP were unremarkable along with Lactic Acid and Lipase. The patient will be admitted with initial impression of Acute Diverticulitis. Due to moderate symptoms she will be started on gram negative and anerobic coverage to cover for Acute Diverticulitis. She will be given pain control. Urine culture will be followed. The plan of care was discussed in length and detail with the patient prior to her admission. The patient verbalized understanding and agreement with the plan of care. Hospital Course Hospital Course Hospital Course: 52-year-old female with past medical history of Interstitial Cystitis s/p recent cystoscopy, CAD s/p PCI, Hypertension and Hyperlipidemia presents with acute onset of Right lower quadrant abdominal pain associated with nausea, CT findings concerning for Acute Diverticulitis and Cystitis. Started on IV antibiotics, tolerated well with improvement in symptoms and tolerance of p.o. intake. Transition to oral antibiotics to complete empiric course for diverticulitis. Urine culture still pending at time of discharge, no growth at discharge. Discharged home in stable condition. Problems addressed as follows: Acute Diverticulitis -Improvement in oral intake during hospitalization. Pain controlled with as needed opiates. Able to advance diet to regular diet for lunch. Tolerating oral antibiotics. Discharged home on Levaquin and Flagyl to complete 10-day empiric course. Interstitial Cystitis - Reports recent Cystoscopy, CT with bladder wall thickening and stranding on admission. Urine culture obtained, no growth at time of discharge. Recommend continuing to follow. CAD Depression/anxiety - Continued home regimes Exam Data for Last 24 hours Vital signs and Labs for Last 24 Hours: Temp Pulse Resp BP Pulse Ox 98.2 F 87 16 124/82 96 07/06/22 04:00 07/06/22 04:00 07/06/22 04:00 07/06/22 04:00 07/06/22 04:00 Laboratory Results - last 24 hr 07/05/22 18:15: Urine Color Yellow, Urine Appearance Sl cloudy, Urine pH 6.5, Ur Specific [place] 1.020, Urine Protein Negative, Urine Glucose (UA) Negative, Urine Ketones Trace, Urine Blood 3+, Urine Nitrate Negative, Urine Bilirubin Negative, Urine Urobilinogen 1.0, Ur Leukocyte Esterase Negative, Urine RBC 10-20, Urine WBC 3-5, Ur Squamous Epith Cells 3-5, Urine Bacteria Trace 07/05/22 18:15: WBC 8.8, RBC 4.06 L, Hgb 13.3, Hct 41.2, MCV 101.6 H, MCH 32.7 H, MCHC 32.2, RDW 12.6, Plt Count 435 H, MPV 8.4, Neut % (Auto) 65.0, Lymph % (Auto) 24.8, [place] % (Auto) 6.0, Eos % (Auto) 3.2, Baso % (Auto) 1.0, Neut # (Auto) 5.7, Lymph # (Auto) 2.2, [place] # (Auto) 0.5, Eos # (Auto) 0.3, Baso # (Auto) 0.1 07/05/22 18:15: Lactate 0.7 07/05/22 18:15: Sodium 141, Potassium 3.9, Chloride 102, Carbon Dioxide 30, Anion Gap 12.9, BUN 12, Creatinine 0.50 L, Estimated Cr
--- NOTE | 2022-07-06 13:16 | DIET.NUTRFU ---
during rounds dr indicated he wanted diet upgraded to rregular for lunch and then plans to discharge later today, during meal rounds she indicated she was hungry and was ready to go home.
--- NOTE | 2022-07-10 13:38 | CARE MANAGER ---
Attempted to contact patient related to discharge. Left VM option. SANDRA Briceno
== END 2022-07-06 16:02 | disposition home or self-care (01) ==
LOC: ER 20:00 → 2ND 21:13 → ER 21:54
PROVIDERS: Admitting Provider Internal Medicine Adolescent Medicine; Emergency Provider Emergency Medicine; PCP Nurse Practitioner Family; Visit Provider Internal Medicine Adolescent Medicine
DX: K57.32 Diverticulitis of large intestine without perforation or abscess without bleeding (principal); N30.10 Interstitial cystitis (chronic) without hematuria; I10 Essential (primary) hypertension; E78.5 Hyperlipidemia, unspecified; I25.10 Atherosclerotic heart disease of native coronary artery without angina pectoris; Z79.899 Other long term (current) drug therapy; G43.909 Migraine, unspecified, not intractable, without status migrainosus
CPT/HCPCS: 74177; 80053; 81001; 83605; 83690; 85025; 87086; 87088; 99285; C9803; G0378; J2405; J2543; Q9967; U0003; U0005

== ENCOUNTER 2022-07-15 17:17 | Emergency (ER) | payer OTHER, MEDICAID, SELFPAY ==
[2022-07-15 18:30] VITALS: BP 149/96; PULSE 91; RESP 19; TEMP 36.8; O2SAT 99; BMI 31.9
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
--- NOTE | 2022-07-15 19:40 | PC.NURSE ---
PATIENT SENT TO ER PER Pedro SCHWAB APRN FOR FURTHER EVALUATION. REPORT GIVEN TO Benjamin HARRISON RN BY Pedro SCHWAB APRN
--- NOTE | 2022-07-15 21:16 | PC.NURSE ---
PATIENT TAKEN TO ER AT THIS TIME. REPORT GIVEN TO Jim ACUÑA RN
[2022-07-15 21:33] VITALS: BP 132/106; PULSE 109; RESP 109; TEMP 36.9; O2SAT 100; BMI 31.8
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
[2022-07-15 23:03] LABS: Basophils # 0.1 K/mm3 (0-0.2); Basophils % 1.2 % (0.1-2.0); Eosinophils # 0.3 K/mm3 (0.0-0.4); Eosinophils % 3.3 % (0.1-12.0); Hematocrit 41.7 % (37.0-47.0); Hemoglobin 13.4 g/dL (12.2-16.2); Lymphocytes # 2.8 K/mm3 (0.7-4.5); Lymphocytes % 35.6 % (10-50); Mean Corpuscular Hemoglobin 32.2 pg (27.0-31.2); Mean Corpuscular Volume 100.4 fl (81-99); Mean Platelet Volume 9.4 fl (7.4-10.4); Monocytes # 0.4 K/mm3 (0.1-1.0); Monocytes % 5.6 % (1.7-9.3); Neutrophils # 4.3 K/mm3 (1.8-7.8); Neutrophils % 54.3 % (37.0-80.0); Platelet Count 465 K/mm3 (142-424); Red Blood Count 4.15 M/mm3 (4.20-5.40); Red Cell Distribution Width 12.8 % (11.5-17.5); White Blood Count 7.9 K/mm3 (4.8-10.8)
[2022-07-15 23:21] LABS: Alanine Aminotransferase 18 U/L (12-78); Albumin Level 3.8 g/dl (3.5-5.0); Albumin/Globulin Ratio 1.2 (1.1-1.8); Alkaline Phosphatase 148 U/L (38-126); Anion Gap 14.9 mEq/L (5-15); Aspartate Amino Transferase 37 U/L (14-36); Bilirubin,Total 0.4 mg/dl (0.2-1.3); Blood Urea Nitrogen 12 mg/dl (7-17); Calcium 10.3 mg/dl (8.4-10.2); Carbon Dioxide 24 mmol/L (22.0-30.0); Chloride 108 mmol/L (98-107); Creatinine Clearance Estimated 188 mL/min (50-200); Estimated Glomerular Filt Rate 130 ml/min (>60); GFR (African American) 157 ML/MIN (>60); Globulin 3.3 g/dL (1.3-3.2); Glucose 88 mg/dl (74-100); Potassium 4.9 mmoL/L (3.5-5.1); Sodium 142 mmol/L (136-145); Total Protein,Serum 7.1 g/dl (6.3-8.2)
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
[2022-07-16 00:04] VITALS: BMI 31.8
[2022-07-16 00:08] VITALS: BP 134/78; PULSE 90; RESP 16; TEMP 36.9; O2SAT 100
== END 2022-07-16 00:10 | disposition home or self-care (01) ==
LOC: ER 17:27 → UTC 17:27 → ER 21:17
PROVIDERS: Emergency Provider Emergency Medicine; PCP Emergency Medicine
DX: S39.012A Strain of muscle, fascia and tendon of lower back, initial encounter (principal); S16.1XXA Strain of muscle, fascia and tendon at neck level, initial encounter; V89.2XXA Person injured in unspecified motor-vehicle accident, traffic, initial encounter; Z79.899 Other long term (current) drug therapy; F32.A Depression, unspecified; I10 Essential (primary) hypertension; Z88.6 Allergy status to analgesic agent; E78.5 Hyperlipidemia, unspecified; I25.10 Atherosclerotic heart disease of native coronary artery without angina pectoris; G43.909 Migraine, unspecified, not intractable, without status migrainosus; Z72.0 Tobacco use
CPT/HCPCS: 36415; 71046; 72040; 72100; 72125; 72128; 72131; 80053; 85025; 99285

== ENCOUNTER 2022-07-30 13:11 | Emergency (ER) | payer MEDICAID, SELFPAY ==
--- NOTE | 2022-07-30 13:25 | XR_ITS ---
PROCEDURE INFORMATION: Exam: XR Left Hand Exam date and time: 07/30/2022 1:34 PM Age: 52 years old Clinical indication: Pain; Finger(s); Left; Additional info: Possible injury to pinky finger TECHNIQUE: Imaging protocol: Radiologic exam of the Left hand. Views: 3 or more views. COMPARISON: No relevant prior studies available. FINDINGS: Bones/joints: There is an acute mildly displaced fracture along the 5th digit's proximal phalangeal base. Overlying soft tissue swelling about the 5th MTP joint noted. Soft tissues: See Bones/joints finding. IMPRESSION: There is an acute mildly displaced fracture along the 5th digit's proximal phalangeal base.
[2022-07-30 15:35] VITALS: BP 129/90; PULSE 84; RESP 18; TEMP 36.6; O2SAT 98; BMI 31.9
[2022-07-30 15:54] VITALS: BP 129/90; PULSE 84; RESP 18; TEMP 36.6; O2SAT 98
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
== END 2022-07-30 16:11 | disposition home or self-care (01) ==
PROVIDERS: Emergency Provider Nurse Practitioner; PCP Emergency Medicine
DX: S62.619A Displaced fracture of proximal phalanx of unspecified finger, initial encounter for closed fracture (principal); I10 Essential (primary) hypertension; I25.10 Atherosclerotic heart disease of native coronary artery without angina pectoris; E78.5 Hyperlipidemia, unspecified; G43.909 Migraine, unspecified, not intractable, without status migrainosus; F17.210 Nicotine dependence, cigarettes, uncomplicated; Z79.1 Long term (current) use of non-steroidal anti-inflammatories (NSAID); Z79.899 Other long term (current) drug therapy; Z88.5 Allergy status to narcotic agent; Z88.6 Allergy status to analgesic agent; Z95.5 Presence of coronary angioplasty implant and graft; Z82.49 Family history of ischemic heart disease and other diseases of the circulatory system; Z88.3 Allergy status to other anti-infective agents
CPT/HCPCS: 29125; 73130; 99213; G0463

== ENCOUNTER → 2022-08-17 12:57 | Outpatient (CLI) | payer MEDICAID, SELFPAY ==
--- NOTE | 2022-08-17 13:01 | XR_ITS ---
FINAL REPORT CLINICAL HISTORY: lt 5th finger fracture, f/u COMPARISON: 07/30/2022 FINDINGS: LEFT HAND Three views demonstrate a nondisplaced fracture of the proximal aspect of the 5th proximal phalanx which is stable from prior exam. No new fracture is identified. Visualized joint spaces are normally aligned. There is dorsal hand soft tissue swelling. IMPRESSION: Stable, nondisplaced fracture of the proximal aspect of the 5th proximal phalanx. Reviewed, Interpreted and Dictated by Roque Shetty III, MD Transcribed by Sharon Ahmadi Authenticated and [facility]
== END ==
PROVIDERS: PCP Emergency Medicine; Visit Provider Physician Assistant Surgical
DX: S62.619A Displaced fracture of proximal phalanx of unspecified finger, initial encounter for closed fracture (principal)
CPT/HCPCS: 73130

== ENCOUNTER → 2022-09-19 08:46 | Outpatient (CLI) | payer MEDICAID, SELFPAY ==
--- NOTE | 2022-09-19 08:56 | XR_ITS ---
FINAL REPORT CLINICAL HISTORY: left hand fx FINDINGS: AP, oblique, and lateral views of the left hand were obtained. Comparison is made to an exam dated August 2022. Slight interval healing of a nondisplaced fracture through the base of the proximal phalanx of the 5th finger. Osteopenia is noted. The joint spaces are preserved. The soft tissues are normal. IMPRESSION: Slight interval healing of nondisplaced 5th proximal phalanx fracture. Reviewed, Interpreted and Dictated by Adriana Turcios MD Transcribed by Harjit Jeter Authenticated and [facility]
== END ==
PROVIDERS: PCP Emergency Medicine; Visit Provider Physician Assistant Surgical
DX: S62.606A Fracture of unspecified phalanx of right little finger, initial encounter for closed fracture (principal)
CPT/HCPCS: 73130

== ENCOUNTER → 2022-11-13 23:34 | Outpatient (CLI) | payer MEDICAID, SELFPAY ==
[2022-11-13 18:57] LABS: Barbiturates Screen,Urine Negative ng/ml (<200); Benzodiazepines Screen,Urine Negative ng/ml (<200)
[2022-11-13 18:58] LABS: Amphetamine/Metha Screen,Urine Negative ng/ml (<1000); Methadone Screen,Urine Negative ng/ml (<300)
[2022-11-13 18:59] LABS: Cannabinoid Screen,Urine Positive ng/ml (<50)
[2022-11-13 19:00] LABS: Cocaine Screen,Urine Negative ng/ml (<300)
[2022-11-13 19:01] LABS: Opiate Screen,Urine Negative ng/ml (<300)
[2022-11-13 19:02] LABS: Phencyclidine Screen,Urine Negative ng/ml (<25)
== END ==
PROVIDERS: PCP Emergency Medicine; Visit Provider Emergency Medicine
DX: Z79.899 Other long term (current) drug therapy (principal)
CPT/HCPCS: 80305

== ENCOUNTER → 2022-11-22 15:13 | Outpatient (CLI) | payer MEDICAID, SELFPAY ==
--- NOTE | 2022-11-22 15:13 | MM_ITS ---
PROCEDURE INFORMATION: Exam: MG Bilateral Screening 3D Mammography Exam date and time: 11/22/2022 3:06 PM Age: 52 years old Clinical indication: Screening examination TECHNIQUE: Imaging protocol: Bilateral Screening tomosynthesis and 2D mammography including computer-aided detection (CAD) when performed. COMPARISON: No relevant prior studies available. FINDINGS: MAMMOGRAPHY: Breast composition: There are scattered areas of fibroglandular density. Mass: None. Architectural distortion: No new or suspicious architectural distortion. Calcifications: No new or suspicious calcifications are present Asymmetric density: No new or suspicious asymmetric density is present Skin thickening: None. Axillary adenopathy: None. IMPRESSION: No mammographic evidence of malignancy. Recommend annual screening mammography unless otherwise clinically indicated. ASSESSMENT: BI-RADS category 1: Negative
== END ==
PROVIDERS: PCP Emergency Medicine; Visit Provider Emergency Medicine
DX: Z12.31 Encounter for screening mammogram for malignant neoplasm of breast (principal)
CPT/HCPCS: 77063; 77067

== ENCOUNTER → 2023-01-09 23:15 | Outpatient (CLI) | payer MEDICAID, SELFPAY ==
[2023-01-09 19:32] LABS: Amphetamine/Metha Screen,Urine Negative ng/ml (<1000); Barbiturates Screen,Urine Negative ng/ml (<200)
[2023-01-09 19:33] LABS: Benzodiazepines Screen,Urine Negative ng/ml (<200)
[2023-01-09 19:34] LABS: Cannabinoid Screen,Urine Positive ng/ml (<50); Cocaine Screen,Urine Negative ng/ml (<300)
[2023-01-09 19:35] LABS: Methadone Screen,Urine Negative ng/ml (<300)
[2023-01-09 19:36] LABS: Opiate Screen,Urine Negative ng/ml (<300); Phencyclidine Screen,Urine Negative ng/ml (<25)
== END ==
LOC: LAB.DROPOF 23:15
PROVIDERS: PCP Emergency Medicine; Visit Provider Emergency Medicine
DX: Z79.899 Other long term (current) drug therapy (principal)
CPT/HCPCS: 80305

== ENCOUNTER 2023-02-09 10:03 | Day surgery (SDC) | payer MEDICAID, SELFPAY ==
[2023-02-07 10:13] VITALS: BMI 30.3
[2023-02-09 10:18] VITALS: BP 152/103; PULSE 111; RESP 18; TEMP 37.4; O2SAT 96
--- NOTE | 2023-02-09 10:29 | P.PN_ITS ---
[facility] Disclaimer: The information contained in this section may have been updated after the patient was seen, as this information can be updated by other users. Medical History CAD (coronary artery disease) History of myocardial infarction History of sudden cardiac arrest Hyperlipidemia Hypertension Interstitial cystitis Migraines Surgical History H/O cystoscopy History of percutaneous coronary intervention History of right heart catheterization (RHC) Family History Other Coronary artery disease Diabetes Heart attack Hypertension Social History Smoking Status: Current every day smoker tobacco type: cigarettes packs per day: 1 alcohol intake: current substance use type: denies use current occupational status: other Travel in the last 8 weeks: None household members: other housing: other [facility] Anesthesia Checklist Patient Identification Patient Identification: Arm Band Structural Data Admitted From: Home Planned Operative Procedure/s: Colonoscopy Consent for Planned Operative Procedure(s) Verified: Yes Verified Documents: Surgical Consent and History and Physical NPO Status Verified Time NPO: 00:00 Additional verifications Anesthesia Reactions: No Airway Assessment C-Spine Mobility Assessed: Yes TMJ Mobility Assessed: Yes Dentition: Poor Dentition Neurological Assessment Level of Consciousness: Awake and Alert Anesthesia Plan Anesthesia Risk discussed: Yes Anesthesia Plan: Verified ASA Class: III Anesthesia Type: MAC
[2023-02-09 10:32] VITALS: O2SAT 96
--- NOTE | 2023-02-09 11:12 | HMH.SCOPE ---
Procedure: Date: 02/09/23 Patient Date of :: 1970 Procedure Performed:: Total colonoscopy to terminal ileum with biopsy and polypectomy by biopsy Indications:: Patient is a 52-year-old female with history of interstitial cystitis, coronary artery disease, previous myocardial infarction and cardiac arrest, hypertension, hyperlipidemia. She was referred for screening colonoscopy. Of note, the patient was admitted in July 2022 with uncomplicated diverticulitis by imaging. She has never had prior colonoscopy. Performing Provider:: Roque Zaldivar MD Referring Provider:: Yan Hunt MD Sedation:: MAC sedation Procedure:: Patient history was obtained and appropriate physical examination was performed. Patient's medications and allergies were reviewed. Informed consent was obtained after explaining the benefits, alternatives, and risks of the procedure including, but not limited to, bleeding, perforation, missed lesions, and adverse reaction to anesthesia medications. Patient was transported to endoscopy procedure room. Patient was connected to monitoring devices. Throughout the procedure the patient's blood pressure, pulse, and oxygen saturations were monitored continuously. Patient identification and planned procedure were verified by the staff. Patient was positioned in lateral decubitus position. Digital anorectal exam was performed. Variable stiffness Olympus colonoscope was inserted and advanced under direct visualization to the cecum. Adequacy of the colonic preparation was noted. The colonoscope was advanced a short distance into the terminal ileum. The colonoscope was then slowly withdrawn while carefully examining the color, texture, anatomy, and integrity of the mucosoa circumferentially. Within the rectum retroflexion was performed. Colonoscope was then withdrawn. She had pandiverticulosis. There was some spasticity to the colon. There were a couple of punctate areas of minor inflammation in the sigmoid colon likely from resolving diverticulitis in the past. Limited biopsy was performed. There was a hyperplastic appearing rectosigmoid polyp which was biopsied with cold biopsy forceps. Retroflexion revealed an internal papilla which was biopsied with hot biopsy. Findings:: Good preparation Pandiverticulosis Punctate area of inflammation in sigmoid Hyperplastic appearing rectosigmoid polyp, biopsy Internal anal papilla, biopsied Recommendations:: Repeat colonoscopy pending pathology Complications:: None immediate Estimated blood obtained (mL): 1 Colonoscopy Component Colonoscopy Component Was a colonoscopy performed during today's procedure?: Yes Recommended follow up colonoscopy of at least 10 years?: No If no, follow up colonoscopy recommended in ___ years?: 5-10 Reason for not recommending >/= 10 yr follow-up interval?: P
[2023-02-09 11:21] VITALS: BP 122/64; PULSE 97; RESP 16; O2SAT 99
[2023-02-09 11:31] VITALS: BP 154/98; PULSE 95; RESP 17; O2SAT 99
== END 2023-02-09 11:35 | disposition home or self-care (01) ==
PROVIDERS: PCP Emergency Medicine; Visit Provider Surgery
PROC: 0DJD8ZZ Inspection of Lower Intestinal Tract, Via Natural or Artificial Opening Endoscopic (ICD-10-PCS; CPT 45384; principal; 2023-02-09 11:00)
DX: Z12.11 Encounter for screening for malignant neoplasm of colon (principal); K63.5 Polyp of colon; K57.30 Diverticulosis of large intestine without perforation or abscess without bleeding; F17.210 Nicotine dependence, cigarettes, uncomplicated; Z79.899 Other long term (current) drug therapy
CPT/HCPCS: 45384; 45380; J2704

== ENCOUNTER 2023-02-21 22:10 | Emergency (ER) | payer MEDICAID, SELFPAY ==
[2023-02-21 22:17] VITALS: BP 145/98; PULSE 142; O2SAT 97
[2023-02-21 22:21] VITALS: BP 131/98; PULSE 142; O2SAT 97
[2023-02-21 22:30] VITALS: BP 145/98; PULSE 140; RESP 20; TEMP 37.1; O2SAT 98; BMI 29.9
--- NOTE | 2023-02-21 22:35 | CT_ITS ---
PROCEDURE INFORMATION: Exam: CT Abdomen And Pelvis With Contrast Exam date and time: 02/21/2023 11:41 PM Age: 52 years old Clinical indication: Abdominal pain; Prior surgery; Surgery date: 6+ months; Surgery type: C section, tubal; Patient HX: HX diverticulitis; Additional info: Right lower abdominal pain TECHNIQUE: Imaging protocol: Computed tomography of the abdomen and pelvis with contrast. Radiation optimization: All CT scans at this facility use at least one of these dose optimization techniques: automated exposure control; mA and/or kV adjustment per patient size (includes targeted exams where dose is matched to clinical indication); or iterative reconstruction. Contrast material: ISOVUE; Contrast volume: 75 ml; Contrast route: IV; REPORTING DATA: Count of CT and Cardiac NM exams in prior 12 months: This patient has received 4 known CTs and 0 known cardiac nuclear medicine studies in the 12 months prior to the current study. COMPARISON: CT ABDOMEN PELVIS W CON 07/05/2022 6:45 PM FINDINGS: Lungs: Clear basilar lung parenchyma. Parenchymal scarring noted in the upper pole of the right moiety. Pleural spaces: No pleural fluid. Heart: Normal heart size. Diaphragm: Moderate sliding hiatal hernia. Liver: Normal configuration. Homogeneous parenchyma. Gallbladder and bile ducts: No regional inflammation. No calcified stones. No ductal dilation. Pancreas: Normal. No ductal dilation. Spleen: Normal. No splenomegaly. Adrenal glands: Normal configuration. Kidneys and ureters: Horseshoe kidney. No evidence of renal obstruction. Stomach and bowel: Postprandial stomach. Normal caliber small bowel. Distal colonic diverticulosis without evidence of acute diverticulitis. Appendix: Normal appendix is confirmed. Intraperitoneal space: No free air. No significant fluid collection. Vasculature: Mild to moderate aortoiliac calcific atherosclerosis. Lymph nodes: No enlarged lymph nodes. Urinary bladder: Unremarkable as visualized. Reproductive: Tubal ligation clips are noted. Bones/joints: No fracture or destructive lesion. Soft tissues: Unremarkable. IMPRESSION: No structural abnormality identified to explain patient's right lower quadrant pain. In particular, a normal appendix is confirmed and there is no evidence of urolithiasis.
--- NOTE | 2023-02-21 22:35 | XR_ITS ---
PROCEDURE INFORMATION: Exam: XR Chest Exam date and time: 02/21/2023 11:42 PM Age: 52 years old Clinical indication: Pain; Other: Epigastric; Additional info: Epigastric pain TECHNIQUE: Imaging protocol: Radiologic exam of the chest. Views: 1 view. COMPARISON: CR XR CHEST 2V 07/15/2022 9:59 PM FINDINGS: Lungs: Clear, symmetrically inflated lungs. Pleural spaces: No pleural effusion. No pneumothorax. Heart/Mediastinum: Cardiac silhouette is normal in size for technique. Bones/joints: Reverse right shoulder prosthesis. Subjective bony demineralization. IMPRESSION: No acute cardiopulmonary abnormality.
[2023-02-21 22:41] LABS: Microscopic, Urine URINE MICROSCOPIC (MICROSCOPIC)
[2023-02-21 22:43] LABS: Appearance,Urine SL CLOUDY (Clear); Bilirubin,Urine 1+ (Negative); Blood, Urine 1+ (Negative); Color,Urine YELLOW (Yellow); Glucose,Urine (UA) TRACE (Negative); Ketones,Urine 1+ (Negative); Leukocyte Esterase,Urine TRACE (Negative); Nitrate,Urine Negative (Negative); Protein,Urine Negative (Negative); Specific Gravity, Urine 1.015 (1.005-1.030); Urobilinogen,Urine >=8.0 EU/dl (0.2)
--- NOTE | 2023-02-21 22:48 | PC.NURSE ---
attempted to place an IV, 3x attempt without success. Dax Pozo RN at bedside with u/s to attempt
[2023-02-21 22:53] LABS: Bacteria,Urine Trace /lpf; Squamous Epithelial Cell,Urine Occasional #/hpf (0-5)
[2023-02-21 22:55] LABS: Amphetamine/Metha Screen,Urine Negative ng/ml (<1000); Barbiturates Screen,Urine Negative ng/ml (<200)
[2023-02-21 22:56] LABS: Benzodiazepines Screen,Urine Negative ng/ml (<200)
[2023-02-21 22:57] LABS: Cannabinoid Screen,Urine Positive ng/ml (<50)
[2023-02-21 22:58] LABS: Cocaine Screen,Urine Negative ng/ml (<300)
[2023-02-21 22:59] LABS: Methadone Screen,Urine Negative ng/ml (<300)
[2023-02-21 23:00] LABS: Opiate Screen,Urine Negative ng/ml (<300); Phencyclidine Screen,Urine Negative ng/ml (<25)
[2023-02-21 23:19] LABS: Basophils % 0.2 % (0.1-2.0); Eosinophils # 0.1 K/mm3 (0.0-0.4); Eosinophils % 1.3 % (0.1-12.0); Hematocrit 41.4 % (37.0-47.0); Hemoglobin 13.2 g/dL (12.2-16.2); Lymphocytes # 2.7 K/mm3 (0.7-4.5); Mean Corpuscular HGB Conc 31.8 g/dL (31.8-35.4); Mean Corpuscular Hemoglobin 29.5 pg (27.0-31.2); Mean Corpuscular Volume 92.6 fl (81-99); Mean Platelet Volume 8.1 fl (7.4-10.4); Monocytes # 0.5 K/mm3 (0.1-1.0); Monocytes % 6.7 % (1.7-9.3); Neutrophils # 4.6 K/mm3 (1.8-7.8); Neutrophils % 57.8 % (37.0-80.0); Platelet Count 340 K/mm3 (142-424); Red Blood Count 4.47 M/mm3 (4.20-5.40); Red Cell Distribution Width 12.8 % (11.5-17.5)
[2023-02-21 23:26] LABS: Alanine Aminotransferase 31 U/L (12-78); Albumin Level 3.8 g/dl (3.5-5.0); Albumin/Globulin Ratio 1.2 (1.1-1.8); Alkaline Phosphatase 157 U/L (38-126); Anion Gap 13.8 mEq/L (5-15); Aspartate Amino Transferase 38 U/L (14-36); Bilirubin,Total 0.4 mg/dl (0.2-1.3); Blood Urea Nitrogen 17 mg/dl (7-17); Calcium 9.3 mg/dl (8.4-10.2); Carbon Dioxide 27 mmol/L (22.0-30.0); Chloride 106 mmol/L (98-107); Creatinine Clearance Estimated 177 mL/min (50-200); Estimated Glomerular Filt Rate 130 ml/min (>60); GFR (African American) 157 ML/MIN (>60); Globulin 3.1 g/dL (1.3-3.2); Glucose 107 mg/dl (74-100); Lipase 97 U/L (23-300); Potassium 3.8 mmoL/L (3.5-5.1); Sodium 143 mmol/L (136-145); Total Protein,Serum 6.9 g/dl (6.3-8.2)
[2023-02-21 23:28] LABS: Activated Partial Thrombo Time 25.4 seconds (22.8-30.6); Prothrombin Time 10.8 seconds (10.1-12.5)
[2023-02-21 23:30] VITALS: BP 124/84; PULSE 106; O2SAT 99
[2023-02-22] VITALS: BP 125/80; PULSE 99; O2SAT 96
--- NOTE | 2023-02-22 00:22 | HMH.EDABDPAI ---
Discharge Plan Disposition Patient Disposition: Home, Self-Care Prescriptions Prescriptions: New dicyclomine 20 mg tablet 20 mg PO QID PRN (Reason: abdominal pain) Qty: 20 0RF No Action lisinopril 5 mg tablet 5 mg PO DAILY Label Comments: Pt states she has not started but was prescribed last week atorvastatin 40 mg tablet 40 mg PO HS Label Comments: TAKE 1 TABLET BY MOUTH AT BEDTIME duloxetine 20 mg capsule,delayed release(DR/EC) 20 mg PO DAILY Label Comments: TAKE 1 CAPSULE BY MOUTH ONCE DAILY IN THE MORNING oxycodone-acetaminophen [Percocet] 5-325 mg tablet 1 tab PO QID Referrals Follow up/Referrals: Catrachito Hunt MD [Primary Care Provider] - See instructions Activity Restrictions/Add. Instructions Additional Instructions/Restrictions: Your work-up for the abdominal pain was negative. CAT scan is negative. There is no signs of any diverticulitis. This abdominal pain can be from your bladder spasm from your interstitial cystitis. Follow-up with Dr. Hunt your family physician. Clinical Impressions Clinical Impression: Abdominal pain, Interstitial cystitis Instructions Patient Instructions: DI for Acute Abdominal Pain Discharge ED Provider: Lana Ross Abdominal Pain HPI General Chief Complaint: Abdominal Pain Stated Complaint: abdominal pain Time Seen by Provider: 02/21/23 22:16 Mode of Arrival: Ambulatory Source of Information: Patient Limitations: No Limitations Description of Symptoms (Recalled from ER Triage Doc. by RN): pt c/o RLQ and groin pain and n/v. pt states her pain is sharp in nature, 9/10, constant and helps minimally if she stayes balled up in position. pt states she has a hx of diverticulitis and interstitial cystitis. pt states it feels like one of these. History of Present Illness HPI narrative: Patient is a 52-year-old occasion female with complaint abdominal pain. Patient is complaining right lower quadrant abdominal pain. Patient stated she has a history of diverticulitis and pain is always in the right side of her abdomen. And this feels just like the diverticulitis that she got Rocephin. Patient also has interstitial cystitis. Nausea. No vomiting. No diarrhea. No fevers or chills complaint: abdominal pain Consistency: constant Location: RLQ Severity: moderate Severity scale (1-10): 8 Quality: stabbing and sharp Radiation: none Migration to: no migration Relieving factors: nothing Exacerbating factors: nothing Related Data Home Medications Medication Instructions Recorded Confirmed lisinopril 5 mg tablet 5 mg PO DAILY High blood pressure 07/05/22 02/09/23 atorvastatin 40 mg tablet 40 mg PO HS Cholesterol 07/06/22 02/09/23 duloxetine 20 mg capsule,delayed 20 mg PO DAILY Depression 02/07/23 02/09/23 release oxycodone-acetaminophen 5 mg-325 1 tab PO QID Pain 02/07/23 02/09/23 mg tablet (Percocet) Previous Rx's Medication Instructions Recorded dicyclomine 20 mg tablet 20 mg PO QID PRN abdominal pain 02/22/23 #20 tabs Allergies Allergy/AdvReac Type Severity Reaction Status Date / Time codeine [CODEINE] Allergy Unknown Verified 02/21/23 22:36 ketorolac [From TORADOL] Allergy Unknown Verified 02/21/23 22:36 naproxen [NAPROXEN] Allergy Unknown Verified 02/21/23 22:36 tramadol [TRAMADOL] Allergy Unknown Verified 02/21/23 22:36 droperidol [From Inapsine] Allergy Verified 02/21/23 22:36 PFSH PFS Disclaimer: The information contained in this section may have been updated after the patient was seen, as this information can be updated by other users. Medical History CAD (coronary artery disease) History of myocardial infarction History of sudden cardiac arrest Hyperlipidemia Hypertension Interstitial cystitis Migraines Surgical History H/O cystoscopy History of percutaneous coronar
[2023-02-22 00:30] VITALS: BP 131/90; PULSE 105; O2SAT 96
[2023-02-22 01:00] VITALS: BP 141/89; PULSE 104; O2SAT 96
[2023-02-22 01:15] VITALS: BP 123/79; PULSE 105; RESP 18; TEMP 36.6
--- NOTE | 2023-02-22 01:15 | PC.NURSE ---
went to d/c pt and she reported that I can not go home in this pain. I have had patience with your all and I need to have something to get me through the night if the medicine she is giving me won't be available until morning . I voiced pt's concerns to Dr. Ross, pt reports to have a bull driver Waiting for her . She was willing to take Bentyl IM, gave verbal order for Bentyl 20mg IM 1x dose.
== END 2023-02-22 01:33 | disposition home or self-care (01) ==
PROVIDERS: Emergency Provider Emergency Medicine; PCP Emergency Medicine
DX: R10.31 Right lower quadrant pain (principal); N30.10 Interstitial cystitis (chronic) without hematuria; K57.90 Diverticulosis of intestine, part unspecified, without perforation or abscess without bleeding; I25.10 Atherosclerotic heart disease of native coronary artery without angina pectoris; I11.9 Hypertensive heart disease without heart failure; E78.5 Hyperlipidemia, unspecified
CPT/HCPCS: 71045; 74177; 80053; 80305; 81001; 83605; 83690; 85025; 85610; 85730; 87040; 96361; 96372; 96374; 96375; 99284; 99285; J0131; J2405; Q9967

== ENCOUNTER 2023-04-08 04:08 | Emergency (ER) | payer MEDICAID, SELFPAY ==
--- NOTE | 2023-04-08 04:10 | HMH.EDGENADL ---
Discharge Plan Prescriptions Prescriptions: No Action oxycodone-acetaminophen [Percocet] 5-325 mg tablet 1 tab PO QID Qty: 120 0RF hyoscyamine sulfate [Levsin] 0.125 mg tablet 0.125 mg PO QID Qty: 120 2RF lisinopril 5 mg tablet 5 mg PO DAILY Patient Comments: Pt states she has not started but was prescribed last week atorvastatin 40 mg tablet 40 mg PO HS Patient Comments: TAKE 1 TABLET BY MOUTH AT BEDTIME duloxetine 20 mg capsule,delayed release(DR/EC) 20 mg PO DAILY Patient Comments: TAKE 1 CAPSULE BY MOUTH ONCE DAILY IN THE MORNING dicyclomine 20 mg tablet 20 mg PO QID PRN (Reason: abdominal pain) Qty: 20 0RF Clinical Impressions Clinical Impression: Cardiac arrest, Asystole Discharge ED Provider: Silviano Lerner General Adult HPI General Stated complaint: code Time Seen by Provider: 04/08/23 04:10 History of Present Illness HPI narrative: Patient is a 53-year-old female with largely unknown past medical history who presents to the emergency department as a cardiac arrest. Limited history is obtained by EMS. Patient was found down, last known normal 4 hours ago. She was stating that she felt tired and was going to bed, family member found her unresponsive and subsequently contacted 911. Upon arrival patient was in asystole. ACLS was performed, IV access was unable to be obtained and she presents here in continued asystolic arrest. No other history is able to be obtained at this time. Related Data Home Medications Medication Instructions Recorded Confirmed lisinopril 5 mg tablet 5 mg PO DAILY High blood pressure 07/05/22 03/09/23 atorvastatin 40 mg tablet 40 mg PO HS Cholesterol 07/06/22 03/09/23 duloxetine 20 mg capsule,delayed 20 mg PO DAILY Depression 02/07/23 03/09/23 release Previous Rx's Medication Instructions Recorded dicyclomine 20 mg tablet 20 mg PO QID PRN abdominal pain 02/22/23 #20 tabs oxycodone-acetaminophen 5 mg-325 1 tab PO QID Pain #120 tabs 03/09/23 mg tablet (Percocet) hyoscyamine sulfate 0.125 mg 0.125 mg PO QID #120 tabs 03/28/23 tablet (Levsin) Allergies Allergy/AdvReac Type Severity Reaction Status Date / Time codeine [CODEINE] Allergy Unknown Verified 03/09/23 14:12 ketorolac [From TORADOL] Allergy Unknown Verified 03/09/23 14:12 naproxen [NAPROXEN] Allergy Unknown Verified 03/09/23 14:12 tramadol [TRAMADOL] Allergy Unknown Verified 03/09/23 14:12 droperidol [From Inapsine] Allergy Verified 03/09/23 14:12 PFS PFS Disclaimer: The information contained in this section may have been updated after the patient was seen, as this information can be updated by other users. Medical History CAD (coronary artery disease) History of myocardial infarction History of sudden cardiac arrest Hyperlipidemia Hypertension Interstitial cystitis Migraines Surgical History H/O cystoscopy History of percutaneous coronary intervention History of right heart catheterization (RHC) Family History Other Coronary artery disease Diabetes Heart attack Hypertension Social History Smoking Status: Never smoker alcohol intake: current substance use type: denies use current occupational status: other Travel in the last 8 weeks: None household members: other housing: other ROS Obtained: Yes other (coding) Physical Exam General General appearance: other (Unresponsive) Head Head exam: atraumatic Eye Eye exam: Present other (dilated non-reactive pupils) Respiratory Respiratory exam: Present other (No spontaneous respirations) Cardiovascular Cardiovascular exam: Present other (Pulseless) Neurological Exam Neurological exam: Present other (GCS 3) Medical Decision M
[2023-04-08 04:11] VITALS: BMI 31.8
--- NOTE | 2023-04-08 04:21 | PC.NURSE ---
Time of arrival 0349 Started compressions 0350 glucose 0350 274 pads placed 0351 charged zoll check pulse 0352 attempt intubate 0352 tube placed 0353 (mach 3, 7 1/2 ET tube used) Check pulse 0354 (asystole) resumed compression 0354 attempted IO R 0354 attempted IO L 0355 (successful) Charged zoll 0355 checked pulse 0356 (asystole) resume compression 0356 epi given 0356 narcan given 0357 zoll charged Pulse checked 0358 (asystole) Resumed compression 0358 Calcium gluconate 2 grams given IO 0358 epi give IO 0359 charged zoll resumed compressions 0400 Cardiac US 0400 Bicarb 1 amp 0401 pulse check at 0402 (asystole) Cardiac US 0402 checked femoral 0403 while cardiac US still in place TOD 0403 debrief 0404 Delivery Nurse Called 0407 Called RODOLFO 0425 Delivery Nurse arrived 0425
--- NOTE | 2023-04-08 04:34 | PC.NURSE ---
Step dad has left and returning back to residence to notified pt's daughter
--- NOTE | 2023-04-08 05:29 | PC.NURSE ---
spoke with Yarely Biggs
[2023-04-08 06:59] VITALS: BP 0/0; PULSE 0; RESP 0; TEMP -17.7; TEMP 0; O2SAT 0
--- NOTE | 2023-04-08 07:01 | PC.NURSE ---
body released to [facility]
== END 2023-04-08 07:03 | disposition expired ==
PROVIDERS: Emergency Provider Emergency Medicine; PCP Emergency Medicine
DX: I46.9 Cardiac arrest, cause unspecified (principal)
CPT/HCPCS: 92950; 96374; 99285; J2310